=== PATIENT | female | born 1965 | race Caucasian/White ===

== ENCOUNTER 2020-05-12 08:49 | Inpatient (IN) ==
[2020-05-12] MEDS ORDERED: ONDANSETRON INJ 2 MG/ML 2 ML VIAL IV STA (09:07)
[2020-05-12] MEDS ORDERED: SODIUM CHLORIDE 0.9% 1000ML 1,000 ML IV ONE (09:07)
[2020-05-12] MEDS ORDERED: MoRPHine SULFATE 4 MG/ML 1 ML CARP\\VIAL IV STA (09:07)
[2020-05-12] MEDS ORDERED: KETOROLAC TROMETHAMINE 15 MG/ML VIAL IV STA (09:07)
--- NOTE | 2020-05-12 09:29 | Emergency Department Note ---
History of Present Illness General Chief complaint: Kidney Stone Stated complaint: LEFT SIDED KIDNEY STONE Time Seen by Provider: 05/12/20 08:58 History of Present Illness Maximum Pain Intensity: 10 54-year-old female who presents to the emergency department for evaluation of severe left flank/lower back pain since 5 AM this morning. The patient reports that the pain awakened her. The patient notes that she did have blood in her urine this morning. She reports feeling nauseated. She denies any pain radiating into the abdomen. The patient does report a history of kidney stones, and reports that this feels the same. Her believes that her last kidney stone was approximately 3 years ago; the patient thinks that it has been longer. Her last kidney stone required a stent that was placed by Dr. Baird, urologist previously with [facility]. The patient currently rates her discomfort a 10 out of 10. She reports that the pain is a slow waxing and waning pain. The patient has not had any vomiting, fever or chills. She denies any preceding urinary symptoms. Home Medications Home Medications Medication Instructions Recorded Confirmed Type cyclobenzaprine 10 mg PO HS PRN 05/12/20 05/12/20 History latanoprost 1 drp OPB HS 05/12/20 05/12/20 History levothyroxine 25 mcg PO DAILYBB 05/12/20 05/12/20 History lisinopril-hydrochlorothiazide 1 tab PO QAM 05/12/20 05/12/20 History multivitamin 1 tab PO QAM 05/12/20 05/12/20 History timolol maleate 1 drp OPB BID 05/12/20 05/12/20 History Allergies Allergy/AdvReac Type Severity Reaction Status Date / Time No Known Allergies Allergy Unknown Verified 05/12/20 10:51 Past Med/Surg History Medical History (Updated 05/12/20 @ 15:44 by Clifford Melissa MD) Glaucoma primary open angle closure Hypertension Hypothyroidism Kidney cysts Kidney stone on R requiring stent placement by Dr. Baird uric acid Obesity Obesity MANUEL on CPAP Pre-diabetes Surgical History H/O section History of cystoscopy Family History Aunt Breast cancer Brother Diabetes Social History Smoking Status: Never smoker Hx Alcohol Use: No Hx Substance Use: No Preferred Language: Yi Communication Ability: Effective Live Out Nanny Required: No Beliefs That Will Affect Care: None marital status: Current Living Situation: Spouse current occupational status: employed current occupation: RN Other Information That Helps Us Care for You: No Feels Safe at Home: Yes Safety Concerns: Feels Safe At This Time Review of Systems 10 system review was performed and was negative except for pertinent positives and negatives as indicated in history of present illness Physical Exam Vital Signs Vital Signs - 24 hr 05/12/20 08:54 05/12/20 10:00 05/12/20 10:47 Temperature 36.9 C Temperature Source Oral Pulse Rate 64 Pulse Rate [Right Finger] 62 62 Respiratory Rate 16 16 16 Respiratory Effort / Characteristics Non-Labored Spontaneous Non-Labored Spontaneous Respiratory Depth Normal Normal Respiratory Pattern Regular Regular Blood Pressure 163/88 H Blood Pressure [Right Arm] 160/87 H 134/69 Blood Pressure Mean 113 Blood Pressure Mean [Right Arm] 111 90 Blood Pressure Position [Right Arm] Lying Lying Pulse Oximetry 98 98 98 Oxygen Delivery Method Room Air Room Air Room Air Sepsis Recent Fever Within 48 Hours No Sepsis New/Unexplained Change in Mental Status N/A Sepsis Action Taken by Nursing No Action Required 05/12/20 11:49 Temperature Temperature Source Pulse Rate Pulse Rate [Right Finger] 68 Respiratory Rate 20 Respiratory Effort / Characteristics Respiratory Depth Respiratory Pattern Blood Pressure Blood Pressure [Right Arm] 133/62 Blood Pressure Mean Blood Pressure Mean [Right Arm] 85 Blood Pressure Position [Right Arm] Pulse Oximetry 98 Oxygen Delivery Method Room Air Sepsis Recent Fever Within 48 Hours Sepsis New/Unexplained Change in Mental Status Sepsis Action Taken by Nursing CONSTITUTIONAL: Healthy and well nourished. Patient appears in severe discomfort. HEENT: Normocephalic, atraumatic. Pupils equal, round and reactive. NECK: Full active range of motion without discomfort. RESPIRATORY: Clear to auscultation bilaterally with no wheezing, crackles, rhonchi or stridor. CARDIOVASCULAR: Regular rate and rhythm with no murmurs, rubs or gallops. GASTROINTESTINAL: Bowel sounds present in all quadrants. No abdominal tenderness to palpation. Negative CVA tenderness. MUSCULOSKELETAL: No tenderness to palpation through the central lumbar spine or paraspinous muscles. INTEGUMENTARY: No rash or other significant dermatologic conditions noted. HEMATOLOGIC: No ecchymosis or petechiae. PSYCHIATRIC: Positive affect. NEUROLOGIC: No focal neurologic deficits noted. Course Course Patient history and physical exam were performed. Nurse's notes were reviewed. Vital signs were reviewed, showing an elevated blood pressure of 163/88. The patient appears in severe discomfort. IV access was established, and labs were drawn. The patient was administered IV morphine, Toradol and Zofran for pain. Review of labs does not show any significant abnormalities; specifically, creatinine and the white count and urinalysis are normal. Noncontrast CT of the abdomen and pelvis confirms two proximal left ureteral calculi. Findings were discussed with the patient and , as well as Dr. Molina, ED attending physician. The case was then further discussed with [facility]. They have requested that the patient be admitted under the hospitalist service, and Dr. Ramsey will evaluate the patient this afternoon for surgical procedure. The patient was administered IV Rocephin 2 g, and instructed to remain n.p.o. at this time. The patient did require additional doses of morphine with good pain control while in the emergency department. Administered Medications Sodium Chloride (Nss 1000ml) 1,000 mls @ 150 mls/hr IV .Q6H40M EDVIN Stop: 06/11/20 13:48 Last Admin: 05/12/20 15:15 Dose: 150 mls/hr Documented by: [id number] Morphine Sulfate (Morphine Sulfate 4 Mg/Ml 1 Ml Carp\Vial) 4 mg IV Q4H PRN PRN Reason: severe pain Stop: 05/26/20 13:48 Last Admin: 05/12/20 15:58 Dose: 4 mg Documented by: [id number] Discontinued Medications Sodium Chloride (Nss 1000ml) 1,000 mls @ 999 mls/hr IV .Q1H1M ONE Stop: 05/12/20 10:07 Last Infusion: 05/12/20 10:37 Dose: 0 mls/hr Documented by: [id number] Admin: 05/12/20 09:36 Dose: 999 mls/hr Documented by: [id number] Ceftriaxone Sodium (Rocephin) 2,000 mg in 70 mls @ 140 mls/hr IV NOW STA Stop: 05/12/20 12:04 Last Infusion: 05/12/20 12:59 Dose: 0 mls/hr Documented by: [id number] Admin: 05/12/20 11:59 Dose: 140 mls/hr Documented by: [id number] Promethazine HCl 12.5 mg/ (Sodium Chloride) 50.5 mls @ 202 mls/hr IV NOW ONE Stop: 05/12/20 15:29 Last Admin: 05/12/20 15:15 Dose: 202 mls/hr Documented by: [id number] Ketorolac Tromethamine (Ketorolac Tromethamine 15 Mg/Ml Vial) 15 mg IV NOW STA Stop: 05/12/20 09:08 Last Admin: 05/12/20 09:37 Dose: 15 mg Documented by: [id number] Morphine Sulfate (Morphine Sulfate 4 Mg/Ml 1 Ml Carp\Vial) 4 mg IV NOW STA Stop: 05/12/20 09:08 Last Admin: 05/12/20 09:37 Dose: 4 mg Documented by: [id number] Morphine Sulfate (Morphine Sulfate 4 Mg/Ml 1 Ml Carp\Vial) 4 mg IV Q30M PRN PRN Reason: Pain Stop: 05/26/20 09:06 Last Admin: 05/12/20 12:20 Dose: 4 mg Documented by: [id number] Admin: 05/12/20 10:33 Dose: 4 mg Documented by: [id number] Ondansetron HCl (Ondansetron Inj 2 Mg/Ml 2 Ml Vial) 4 mg IV NOW STA Stop: 05/12/20 09:08 Last Admin: 05/12/20 09:37 Dose: 4 mg Documented by: [id number] Ondansetron HCl (Ondansetron Inj 2 Mg/Ml 2 Ml Vial) Confirm Administered Dose 4 mg .ROUTE .STK-MED ONE Stop: 05/12/20 13:25 Last Admin: 05/12/20 13:25 Dose: 4 mg Documented by: [id number] Medical Decision Making Medical Records Attestation: I reviewed the patient's medical records. Home Medications Current Medication List: was personally reviewed by me Laboratory Data Attestation: I reviewed the patient's lab results. Result diagrams: 05/12/20 09:35 05/12/20 09:35 Lab Results 05/12/20 05/12/20 05/12/20 Range/Units 09:00 09:35 09:35 WBC 7.39 (4.8-10.8) K/uL RBC 4.61 (4.2-5.4) M/uL Hgb 14.0 (12.0-16.0) g/dL Hct 42.3 (37-47) % MCV 91.8 (80-100) fL MCH 30.4 (25-34) pg MCHC 33.1 (32-36) g/dL RDW Std Deviation 46.0 (36.4-46.3) fL RDW Coeff of Juan 13.6 (11.5-14.5) % Plt Count 201 (130-400) K/uL MPV 10.4 (7.4-10.4) fL Immature Gran % (Auto) 0.3 % Neut % (Auto) 75.7 % Lymph % (Auto) 14.5 % [place] % (Auto) 7.8 % Eos % (Auto) 1.4 % Baso % (Auto) 0.3 % Neut # (Auto) 5.60 (1.4-6.5) K/uL Lymph # (Auto) 1.07 L (1.2-3.4) K/uL [place] # (Auto) 0.58 (0.11-0.59) K/uL Eos # (Auto) 0.10 (0-0.5) K/uL Baso # (Auto) 0.02 (0-0.2) K/uL Immature Gran # (Auto) 0.02 (0.00-0.02) K/uL Sodium 141 (136-145) mmol/L Potassium 3.8 (3.5-5.1) mmol/L Chloride 109 H (98-107) mmol/L Carbon Dioxide 26 (21-32) mmol/L Anion Gap 6.0 (3-11) BUN 13 (7-18) mg/dl Creatinine 1.13 (0.6-1.2) mg/dl Est Cr Clr Drug Dosing 80.8 ml/min Est GFR ( Amer) 63.4 Est GFR (Non-Af Amer) 54.7 BUN/Creatinine Ratio 11.3 (10-20) Glucose 119 H (70-99) mg/dl Calcium 9.7 (8.5-10.1) mg/dl Total Bilirubin 0.7 (0.2-1) mg/dl AST 15 (15-37) U/L ALT 26 (12-78) U/L Alkaline Phosphatase 80 (45-117) U/L Total Protein 8.0 (6.4-8.2) gm/dl Albumin 3.7 (3.4-5.0) gm/dl Globulin 4.3 H (2.5-4.0) gm/dl Albumin/Globulin Ratio 0.9 (0.9-2) Lipase 106 (73-393) U/L Urine Color Brown Urine Appearance Cloudy A (Clear) Urine pH 5.5 (4.5-7.5) Ur Specific [place] 1.025 (1.000-1.030) Urine Protein 2+ H (Negative) Urine Glucose (UA) Negative (Negative) Urine Ketones Negative (Negative) Urine Blood 3+ H (Negative) Urine Nitrite Negative (Negative) Urine Bilirubin Negative (Negative) Urine Urobilinogen Negative (Negative) Ur Leukocyte Esterase Negative (Negative) Urine RBC >30 H (0-4) /hpf Urine WBC >30 H (0-5) /hpf Ur Epithelial Cells 10-20 H (0-5) /lpf Urine Bacteria Negative (Negative) Urine Mucus Present A (None Prsent) Imaging Data Attestation: I personally reviewed and interpreted this imaging study as follows: My Impression: My interpretation of a noncontrast CT of the abdomen and pelvis shows 2 proximal left ureteral calculi with moderate to severe hydronephrosis. Radiologist's Impression: CT SCAN OF THE ABDOMEN AND PELVIS WITHOUT IV CONTRAST CLINICAL HISTORY: Left flank pain. COMPARISON STUDY: Abdominal CT dated 02/24/2014. TECHNIQUE: CT scan of the abdomen and pelvis is performed from the lung bases to the proximal femora. Images are reviewed in the axial, sagittal, and coronal planes. IV contrast was not administered for this examination. A dose lowering technique was utilized adhering to the principles of ALARA. The examination is degraded by large body habitus, and by streak artifact from the body wall ab utting the CT gantry. CT DOSE: 1723.93 mGy.cm FINDINGS: Lung bases: The heart is normal in size and without pericardial effusion. The coronary arteries are densely calcified. The lung bases are clear noting bibasilar atelectasis. A small hiatal hernia is noted. Liver: The unenhanced liver is enlarged, measuring 22.8 cm in length. The liver demonstrates diffusely diminished attenuation consistent with hepatic steatosis. Fatty sparing is seen adjacent to gallbladder fossa. There is no intrahepatic biliary ductal dilatation. Gallbladder: There are numerous large calcified gallstones with no CT evidence of acute cholecystitis. Spleen: Normal in size and attenuation. Pancreas: The unenhanced pancreas is mildly atrophic and grossly unremarkable. Adrenal glands: Unremarkable. Kidneys: The unenhanced kidneys demonstrate mild cortical atrophy. There is a 1.8 cm linear obstructing calculus identified in the left proximal ureter below the ureteropelvic junction. This is located at the L3-L4 level as seen on image #256. This causes severe left-sided hydronephrosis with associated left-sided perinephric stranding and fluid. An additional 4 mm calculus is present in the left proximal ureter at the level of L4 as seen on image #270. There are additional 1.8 cm and 0.9 cm nonobstructing left renal calculi. No right renal calculi are seen. There is moderate right-sided hydronephrosis. The right ureter is normal in caliber with no obstructing stone/lesion identified. This likely represents a UPJ type obstruction. A 3 cm cyst is noted in the left upper pole. Abdominal vasculature: The abdominal aorta is normal in course and caliber noting moderate atherosclerotic calcification. Bowel: There is mild colonic diverticulosis without CT evidence of acute diverticulitis. No bowel obstruction is seen. The appendix is normal as imaged. Peritoneum: There is no intraperitoneal free air or abdominal ascites. There is laxity of the ventral abdominal wall with a small fat-containing umbilical hernia. Lymphadenopathy: None. Pelvic viscera: The bladder, uterus, and adnexa are normal as visualized. Skeletal structures: The skeletal structures are osteopenic. There is mild lumbosacral spondylosis. Sclerotic change is seen in the sacroiliac joints and pubic symphysis. No lytic or blastic lesions are seen. IMPRESSION: 1. There is a 1.8 cm linear obstructing calculus identified in the left proximal ureter just below the ureteropelvic junction. This causes moderate to severe l eft-sided hydronephrosis. 2. An additional 4 mm calculus is present in the left proximal ureter below the larger obstructing stone. 3. Additional nonobstructing left renal calculi as above. 4. No right renal calculi are identified. 5. There is moderate right-sided hydronephrosis. The right ureter is normal in caliber with no obstructing stone/lesion seen. This likely represents a UPJ type obstruction. 6. Cholelithiasis. 7. Hepatomegaly and hepatic steatosis. 8. There is advanced atherosclerotic calcification of the coronary arteries. 9. Mild colonic diverticulosis without CT evidence of acute diverticulitis. 10. Additional findings as above. Blood Pressure Blood Pressure Findings: Normal blood pressure MDM Narrative CT imaging today shows two proximal ureteral stones that will not likely pass. Fortunately, the patient does not have any evidence for acute kidney injury or infection. She is afebrile and has no leukocytosis. Patient did have decent pain control while in the emergency department. I do not suspect other possible etiologies such as pancreatitis, cholecystitis, hepatitis, diverticulitis, bowel obstruction or appendicitis. I also do not suspect cardiopulmonary referred pain. Impression & Plan Calculus of proximal left ureter Discharge Plan Visit Data Chief Complaint: Kidney Stone Stated Complaint: LEFT SIDED KIDNEY STONE ED Provider: Efraín Molina ED Midlevel Provider: Mraty Lauren Discharge Problem: Calculus of proximal left ureter Patient Disposition: Admitted As Inpatient Discharge Instructions Interventions: ED Discharge Assessment Last Done: 05/12/20 13:14
[2020-05-12 09:48] LABS: Basophils # (auto) 0.02 K/uL (0-0.2); Basophils % (auto) 0.3 %; Eosinophils % (auto) 1.4 %; Hematocrit (blood only) 42.3 % (37-47); Immature Granulocytes # (auto) 0.02 K/uL (0.00-0.02); Immature Granulocytes % (auto) 0.3 %; Lymphocytes # (auto) 1.07 K/uL (1.2-3.4); Lymphocytes % (auto) 14.5 %; Mean Corpuscular Hemoglobin 30.4 pg (25-34); Mean Corpuscular Hgb Conc 33.1 g/dL (32-36); Mean Corpuscular Volume 91.8 fL (80-100); Mean Platelet Volume 10.4 fL (7.4-10.4); Monocytes # (auto) 0.58 K/uL (0.11-0.59); Monocytes % (auto) 7.8 %; Neutrophils % (auto) 75.7 %; Platelet Count 201 K/uL (130-400); RDW Coefficient of Variation 13.6 % (11.5-14.5); Red Blood Count 4.61 M/uL (4.2-5.4); White Blood Count 7.39 K/uL (4.8-10.8)
[2020-05-12 10:08] LABS: Appearance Urine Cloudy (Clear); Bilirubin Urine Negative (Negative); Blood Urine 3+ (Negative); Color Urine Brown; Glucose Urine UA Negative (Negative); Ketones Urine Negative (Negative); Leukocyte Esterase Urine Negative (Negative); Nitrite Urine Negative (Negative); Protein Urine 2+ (Negative); Specific Gravity Urine 1.025 (1.000-1.030); Urobilinogen Urine Negative (Negative); pH Urine 5.5 (4.5-7.5)
[2020-05-12 10:18] LABS: Mucus Urine Present (None Prsent); RBC Urine >30 /hpf (0-4); WBC Urine >30 /hpf (0-5)
--- NOTE | 2020-05-12 10:18 | CT Scan Report ---
CT SCAN OF THE ABDOMEN AND PELVIS WITHOUT IV CONTRAST CLINICAL HISTORY: Left flank pain. COMPARISON STUDY: Abdominal CT dated 02/24/2014. TECHNIQUE: CT scan of the abdomen and pelvis is performed from the lung bases to the proximal femora. Images are reviewed in the axial, sagittal, and coronal planes. IV contrast was not administered for this examination. A dose lowering technique was utilized adhering to the principles of ALARA. The ex amination is degraded by large body habitus, and by streak artifact from the body wall abutting the C T gantry. CT DOSE: 1723.93 mGy.cm FINDINGS: Lung bases: The heart is normal in size and without pericardial effusion. The coronary arteries are d ensely calcified. The lung bases are clear noting bibasilar atelectasis. A small hiatal hernia is not ed. Liver: The unenhanced liver is enlarged, measuring 22.8 cm in length. The liver demonstrates diffusel y diminished attenuation consistent with hepatic steatosis. Fatty sparing is seen adjacent to gallbla dder fossa. There is no intrahepatic biliary ductal dilatation. Gallbladder: There are numerous large calcified gallstones with no CT evidence of acute cholecystitis . Spleen: Normal in size and attenuation. Pancreas: The unenhanced pancreas is mildly atrophic and grossly unremarkable. Adrenal glands: Unremarkable. Kidneys: The unenhanced kidneys demonstrate mild cortical atrophy. There is a 1.8 cm linear obstructi ng calculus identified in the left proximal ureter below the ureteropelvic junction. This is located at the L3-L4 level as seen on image #256. This causes severe left-sided hydronephrosis with associate d left-sided perinephric stranding and fluid. An additional 4 mm calculus is present in the left prox imal ureter at the level of L4 as seen on image #270. There are additional 1.8 cm and 0.9 cm nonobstr ucting left renal calculi. No right renal calculi are seen. There is moderate right-sided hydronephro sis. The right ureter is normal in caliber with no obstructing stone/lesion identified. This likely r epresents a UPJ type obstruction. A 3 cm cyst is noted in the left upper pole. Abdominal vasculature: The abdominal aorta is normal in course and caliber noting moderate atheroscle rotic calcification. Bowel: There is mild colonic diverticulosis without CT evidence of acute diverticulitis. No bowel obs truction is seen. The appendix is normal as imaged. Peritoneum: There is no intraperitoneal free air or abdominal ascites. There is laxity of the ventral abdominal wall with a small fat-containing umbilical hernia. Lymphadenopathy: None. Pelvic viscera: The bladder, uterus, and adnexa are normal as visualized. Skeletal structures: The skeletal structures are osteopenic. There is mild lumbosacral spondylosis. S clerotic change is seen in the sacroiliac joints and pubic symphysis. No lytic or blastic lesions are seen. IMPRESSION: 1. There is a 1.8 cm linear obstructing calculus identified in the left proximal ureter just below th e ureteropelvic junction. This causes moderate to severe left-sided hydronephrosis. 2. An additional 4 mm calculus is present in the left proximal ureter below the larger obstructing st one. 3. Additional nonobstructing left renal calculi as above. 4. No right renal calculi are identified. 5. There is moderate right-sided hydronephrosis. The right ureter is normal in caliber with no obstru cting stone/lesion seen. This likely represents a UPJ type obstruction. 6. Cholelithiasis. 7. Hepatomegaly and hepatic steatosis. 8. There is advanced atherosclerotic calcification of the coronary arteries. 9. Mild colonic diverticulosis without CT evidence of acute diverticulitis. 10. Additional findings as above. ACT 112: Negative or not required by law. Electronically signed by: Efraín Samuels M.D. 05/12/2020 10:17 AM
[2020-05-12 10:19] LABS: Bacteria Urine Negative (Negative)
[2020-05-12 10:20] LABS: Albumin Level 3.7 gm/dl (3.4-5.0); BUN Creatinine Ratio 11.3 (10-20); Calcium 9.7 mg/dl (8.5-10.1); Creatinine Clr Calc Pharmacy 80.8 ml/min; Est GFR (African American) 63.4; Est GFR (Non-African American) 54.7; Potassium 3.8 mmol/L (3.5-5.1)
[2020-05-12 10:23] LABS: Albumin Globulin Ratio 0.9 (0.9-2); Bilirubin,Total 0.7 mg/dl (0.2-1); Globulin 4.3 gm/dl (2.5-4.0)
[2020-05-12] MEDS: MoRPHine SULFATE 4 MG/ML 1 ML CARP\\VIAL IV PRN ×2 (10:33→12:20)
[2020-05-12] MEDS ORDERED: cefTRIAXone SODIUM 2,000 MG/70 ML BAG IV STA (11:35)
--- NOTE | 2020-05-12 12:19 | History & Physical Report ---
Date of Service May 12, 2020 Assessment & Plan (1) Obstruction of left ureteropelvic junction (UPJ) due to stone: This is a 54-year-old female who has significant past medical history of HTN, hypothyroidism, POAG, MANUEL on CPAP, morbid obesity, history of kidney stone, prediabetes who presents to ED secondary to acute onset left leg pain starting at 5 AM. In ED patient was hemodynamically stable. CT abdomen pelvis revealed large 1.8 cm obstructing calculus at the UPJ with moderate to severe left hydronephrosis. Also an additional 4 mm calculus present below the large obstructing stone. Also noted is moderate right-sided hydronephrosis without obstructing stone or lesion. [place] Var[place] secondary to a UPJ type obstruction. She remained afebrile and renal function mildly elevated from baseline of 0.8 to 1.13. Urinalysis not consistent with acute infection. Urine culture sent. In ED she did receive empiric 2 g ceftriaxone along with IV morphine and Toradol. Her symptoms have improved. admit to medical consult urology Dr. Ramsey keep NPO IVF 150cc/hr NS strain all urine IV toradol 15mg IV q6hr prn mod pain/ IV morphine 4mg q4hr severe pain 2g rocephin empirically until infection ruled out, urine culture pending pt does NOT meet SIRS/SEPSIS criteria on admission (2) Acute renal insufficiency: Baseline creatinine 0.8 BUN/creatinine 13 and 1.13 in setting of hydronephrosis due to obstruction 2/2 to nephrolithiasis IVF 150 cc/h, reevaluate renal function (3) Hypertension: Blood pressure controlled 133/62 Hold lisinopril/HCTZ until renal function reevaluate in a.m. due to mild renal insufficiency (4) Glaucoma: Continue timolol and latanoprost (5) Pre-diabetes: Last A1c 5.9 01/05/2020 Encourage lifestyle modifications (6) MANUEL on CPAP: CPAP at bedtime (7) Obesity: Morbid obesity, BMI 46.6 Encourage lifestyle and diet modification (8) DVT prophylaxis: SCD/TEDS for now due probably urologic procedure today assess daily need for chemical prophylaxis Disposition: Admit to medical Follow-up: PCP Dr. Kitchen upon discharge Patient was seen and examined in collaboration with Dr. Feng, please see addendum History of Present Illness Chief Complaint: L Flank pain starting @ 5pm. Primary Care Provider: Kaylee Kitchen DO This is a 54-year-old female who has significant past medical history of HTN, hypothyroidism, POAG, MANUEL on CPAP, morbid obesity, history of kidney stone, prediabetes who presents to ED secondary to acute onset left leg pain starting at 5 AM. Pain awoke patient this morning. Pain located in left flank region without radiation. She further elicits nausea and rosalio hematuria this morning. Pain was 10/10 but currently she is pain free after receiving analgesia. Nothing made better/worse except IV pain medications. She has prior history of right kidney stone in the past requiring stent placement and testing positive for uric acid stone. In past she follows Dr. Baird with [facility] urology, but has not yet established with another provider. She denies any fever, chills, sweats, lightheadedness, dizziness, chest pain, shortness of breath, cough, emesis, dysuria, increased urgency or frequency, melena, hematochezia. She did take her am. medications including lisinopril/hctz and levothyroxine. is at bedside. In ED patient was hemodynamically stable. CT abdomen pelvis revealed large 1.8 cm obstructing calculus at the UPJ with moderate to severe left hydronephrosis. Also an additional 4 mm calculus present below the large obstructing stone. Also noted is moderate right-sided hydronephrosis without obstructing stone or lesion. [place] Varina secondary to a UPJ type obstruction. She remained afebrile and renal function mildly elevated from baseline of 0.8 to 1.13. Urinalysis not consistent with acute infection. Urine culture sent. In ED she did receive empiric 2 g ceftriaxone along with IV morphine and Toradol. Her symptoms have improved. Allergies Allergy/AdvReac Type Severity Reaction Status Date / Time No Known Allergies Allergy Unknown Verified 05/12/20 10:51 Home Medications Home Medications Medication Instructions Recorded Confirmed Type cyclobenzaprine 10 mg PO HS PRN 05/12/20 05/12/20 History latanoprost 1 drp OPB HS 05/12/20 05/12/20 History levothyroxine 25 mcg PO DAILYBB 05/12/20 05/12/20 History lisinopril-hydrochlorothiazide 1 tab PO QAM 05/12/20 05/12/20 History multivitamin 1 tab PO QAM 05/12/20 05/12/20 History timolol maleate 1 drp OPB BID 05/12/20 05/12/20 History Past Med/Surg History Medical History Glaucoma primary open angle closure Hypertension Hypothyroidism Kidney cysts Kidney stone on R requiring stent placement by Dr. 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 Beliefs That Will Affect Care: None marital status: Current Living Situation: Spouse current occupational status: employed current occupation: RN Other Information That Helps Us Care for You: No Feels Safe at Home: Yes Safety Concerns: Feels Safe At This Time Review of Systems Review of Systems: All systems reviewed & are unremarkable except as noted in HPI & below Physical Exam Physical Exam: Constitutional: WD/WN, F, vitals as above, NAD, sitting up in bed, pleasant, conversing easily Head: Normocephalic, Atraumatic Eyes: PERRL, conjunctivae normal, anicteric sclerae ENMT: external ear and nose normal, oropharynx normal Neck: trachea midline, no thyromegaly normal visual inspection Respiratory: normal respiratory effort, lungs clear to auscultation, no wheeze, rales, rhonchi. Normal insp/exp effort, no accessory muscle use Cardiovascular: RRR, no murmur, no edema Vessels: no JVD or carotid bruit Chest: normal inspection of chest Abdomen: obese abd, normal bowel sounds, soft, nontender, no hepatosplenomegaly Musculoskeletal: no cyanosis or clubbing, extremities motor strength 5/5, currently no cva tenderness Skin: no rashes, warm and dry normal turgor Neurologic: PERRL, EOMI, accommodation nl, no face palsy, no dysarthria CN's II-XI intact bilaterally and moves all extremities Psychiatric: A+Ox3, euthymic affect Lymphatic: no cervical or axillary lymphadenopathy : deferred Results & Data Results & Data ([facility]) Vital Signs (Past 12 Hours) Vital Signs Temp Pulse Pulse Resp BP BP Pulse Ox 05/12/20 11:49 68 20 133/62 98 05/12/20 10:47 62 16 134/69 98 05/12/20 10:00 62 16 160/87 H 98 05/12/20 08:54 36.9 C 64 16 163/88 H 98 Laboratory Results Short CBC 05/12/20 Range/Units 09:35 WBC 7.39 (4.8-10.8) K/uL Hgb 14.0 (12.0-16.0) g/dL Hct 42.3 (37-47) % Plt Count 201 (130-400) K/uL BMP 05/12/20 09:35 Sodium 141 Potassium 3.8 Chloride 109 H Carbon Dioxide 26 BUN 13 Creatinine 1.13 Glucose 119 H Calcium 9.7 Liver Function 05/12/20 Range/Units 09:35 Total Bilirubin 0.7 (0.2-1) mg/dl AST 15 (15-37) U/L ALT 26 (12-78) U/L Alkaline Phosphatase 80 (45-117) U/L Albumin 3.7 (3.4-5.0) gm/dl Urine 05/12/20 Range/Units 09:00 Urine Color Brown Urine Appearance Cloudy A (Clear) Urine pH 5.5 (4.5-7.5) Ur Specific [place] 1.025 (1.000-1.030) Urine Protein 2+ H (Negative) Urine Glucose (UA) Negative (Negative) Diagnostic Findings CT Abd/Pelvis: IMPRESSION: 1. There is a 1.8 cm linear obstructing calculus identified in the left proximal ureter just below the ureteropelvic junction. This causes moderate to severe left-sided hydronephrosis. 2. An additional 4 mm calculus is present in the left proximal ureter below the larger obstructing stone. 3. Additional nonobstructing left renal calculi as above. 4. No right renal calculi are identified. 5. There is moderate right-sided hydronephrosis. The right ureter is normal in caliber with no obstructing stone/lesion seen. This likely represents a UPJ type obstruction. 6. Cholelithiasis. 7. Hepatomegaly and hepatic steatosis. 8. There is advanced atherosclerotic calcification of the coronary arteries. 9. Mild colonic diverticulosis without CT evidence of acute diverticulitis. 10. Additional findings as above. Medications Administered Morphine Sulfate (Morphine Sulfate 4 Mg/Ml 1 Ml Carp\Vial) 4 mg IV Q30M PRN PRN Reason: Pain Stop: 05/26/20 09:06 Last Admin: 05/12/20 12:20 Dose: 4 mg Documented by: [id number] Admin: 05/12/20 10:33 Dose: 4 mg Documented by: [id number] Discontinued Medications Sodium Chloride (Nss 1000ml) 1,000 mls @ 999 mls/hr IV .Q1H1M ONE Stop: 05/12/20 10:07 Last Infusion: 05/12/20 10:37 Dose: 0 mls/hr Documented by: [id number] Admin: 05/12/20 09:36 Dose: 999 mls/hr Documented by: [id number] Ceftriaxone Sodium (Rocephin) 2,000 mg in 70 mls @ 140 mls/hr IV NOW STA Stop: 05/12/20 12:04 Last Admin: 05/12/20 11:59 Dose: 140 mls/hr Documented by: [id number] Ketorolac Tromethamine (Ketorolac Tromethamine 15 Mg/Ml Vial) 15 mg IV NOW STA Stop: 05/12/20 09:08 Last Admin: 05/12/20 09:37 Dose: 15 mg Documented by: [id number] Morphine Sulfate (Morphine Sulfate 4 Mg/Ml 1 Ml Carp\Vial) 4 mg IV NOW STA Stop: 05/12/20 09:08 Last Admin: 05/12/20 09:37 Dose: 4 mg Documented by: [id number] Ondansetron HCl (Ondansetron Inj 2 Mg/Ml 2 Ml Vial) 4 mg IV NOW STA Stop: 05/12/20 09:08 Last Admin: 05/12/20 09:37 Dose: 4 mg Documented by: [id number] Code Status & VTE Plan Code Status Full Code VTE Prophylaxis Plan VTE Prophylaxis will be ordered: Yes Supervising Physician Co-Signing Physician Notes I saw this patient with the physician office administrative assistant, I participated in the history, physical, review of systems, and physical exam. I reviewed the medications with the patient and the physician office administrative assistant and helped reconcile the medications. I helped take a detailed family and social history as well. I formulated the assessment and plan personally with the physician office administrative assistant and went over it with the patient. Physical Exam Gen-AAO x 3, NAD, Afebrile Head-NCAT, EOMI, PERRLA, Anicteric Sclera, No Posterior Pharyngeal Erythema Neck-Supple, No JVD, No Thyromegaly, No Masses, No LAD, No Bruits Lungs-Clear to Auscultation Bilaterally, No Rales, No Rhonchi, No Wheezing, No Crepitus Chest-No S4, +S1, +S2, No S3, No Murmurs, No Rubs, No Gallops, No Ectopy Abdomen-Soft, Bowel Sounds Present, Non Tender, Non Distended, No Hepatomegaly, No Splenomegaly, No Palpable Masses, No Rebound, No Rigidity, No Guarding Musculoskeletal-Full Range of Motion Bilaterally, No CVAT Extremities-No Cyanosis, No Clubbing, No Edema Nuero-Cranial Nerves II-XII grossly intact, Motor WNL, DTRs WNL, Strength WNL, Non Focal Psych-Normal Mood
[2020-05-12] MEDS ORDERED: ONDANSETRON INJ 2 MG/ML 2 ML VIAL ONE ×3 (13:24→16:26)
[2020-05-12] MEDS ORDERED: ALUMINUM/MAGNESIUM SUSP 30 ML UDC PO PRN (13:49)
[2020-05-12] MEDS ORDERED: POLYETHYLENE (MIRALAX) 17 GM PACK PO PRN (13:49)
[2020-05-12] MEDS ORDERED: KETOROLAC TROMETHAMINE 15 MG/ML VIAL IV PRN (13:49)
[2020-05-12] MEDS ORDERED: MAGNESIUM HYDROXIDE SUSP 30 ML UDC PO PRN (13:49)
[2020-05-12] MEDS ORDERED: MoRPHine SULFATE 4 MG/ML 1 ML CARP\\VIAL IV PRN (13:49)
[2020-05-12] MEDS ORDERED: ONDANSETRON INJ 2 MG/ML 2 ML VIAL IV PRN ×2 (13:49→15:22)
[2020-05-12] MEDS ORDERED: CYCLOBENZAPRINE HCL 10 MG TAB PO PRN (14:07)
[2020-05-12] MEDS ORDERED: LIDOCAINE HCL 2% 2 ML VIAL/AMP(20MG/ML) INFIL ONE (14:56)
[2020-05-12] MEDS ORDERED: ePHEDrine sulfate 50 MG/ML SYR ONE (14:56)
[2020-05-12] MEDS ORDERED: PROPOFOL IV EMULSION 10 MG/ML 20 ML VIAL IV ONE (14:56)
[2020-05-12] MEDS ORDERED: MIDAZOLAM HCL 1 MG/ML 2ML VIAL ONE (14:56)
[2020-05-12] MEDS ORDERED: PHENYLEPHRINE 100MCG/ML 5ML SYR ONE (14:56)
[2020-05-12] MEDS ORDERED: fentaNYL citrate 100 MCG/2 ML VIAL ONE (14:56)
[2020-05-12] MEDS: SODIUM CHLORIDE 0.9% 1000ML 1,000 ML IV SCH ×2 (15:03→15:15)
[2020-05-12] MEDS ORDERED: PROMETHAZINE HCL 12.5 MG in SODIUM CHLORIDE 0.9% 50 ML IV ONE (15:15)
[2020-05-12] MEDS ORDERED: MEPERIDINE HCL 25 MG/ML CARP/VIAL IV PRN (15:22)
[2020-05-12] MEDS ORDERED: ePHEDrine sulfate 50 MG/ML AMP IV PRN (15:22)
[2020-05-12] MEDS ORDERED: HYDROmorphone INJ 1 MG/ML SYRINGE IV PRN (15:22)
[2020-05-12] MEDS ORDERED: PHENYLEPHRINE 100MCG/ML 5ML SYR IV PRN (15:22)
[2020-05-12] MEDS ORDERED: LABETALOL HCL IV 5 MG/ML 20ML IV PRN (15:22)
[2020-05-12] MEDS ORDERED: ATROPINE SULFATE 0.1 MG/ML 10ML SYR IV PRN (15:22)
[2020-05-12] MEDS ORDERED: fentaNYL citrate 100 MCG/2 ML VIAL IV PRN (15:22)
--- NOTE | 2020-05-12 16:09 | Urology Consultation ---
Date of Consultation May 12, 2020 Assessment & Plan (1) Calculus of proximal left ureter: (2) Obstruction of left ureteropelvic junction (UPJ) due to stone: (3) Hydronephrosis, right: Plan on placing a left stent and may need alkalinization or may need further intervention with either ureteroscopy or ESWL We will do a right retrograde to assess the right side for possible UPJ obstruction History of Present Illness Reason for Consultation: Ureteral stone Attending Physician: Mukund Feng, DO History of Present Illness 54-year-old female with a previous history of stone disease who had a stent placed in the past by Dr. Baird and possibly a stone dissolved but I do not have the definite information but reportedly she had a uric acid stone in the history. Patient is unsure of this. She had sudden onset of severe pain earlier this morning pain got increasingly severe she came to the hospital and has had a CAT scan that shows a stone in the proximal left UPJ a small stone distal to this and another stone in the kidney on the left side that is larger approximately a centimeter or more. She does have hydronephrosis. She also has hydronephrosis on the contralateral side and possibly a right UPJ. She denies any pain on that side. She did have pyuria on urinalysis this morning although it is unclear if she had a clean-catch. We discussed the options and discussed placing a stent given the stone is at the UPJ will simply follow back into the kidney and also has a second larger stone in the kidney will need to get a KUB and consider either lithotripsy and/or possibly alkalinization of the stone if it has uric acid Incidentally the patient has what appears to be some right hydronephrosis but no stone she may have a partial right UPJ obstruction but is asymptomatic from this and does not have an abnormal creatinine at this time. Will need possibly a renal scan after the stone on the left side is cared for Discussed the options including ureteroscopy and/or trial of passage and possible need for as well or ureteroscopy after this procedure or the possibility that they can be dissolved if she has uric acid stone. Also discussed the right retrograde will not place a stent at this time secondary to absence of pain but she may need further investigation with a renal scan down e road Allergies Allergy/AdvReac Type Severity Reaction Status Date / Time No Known Allergies Allergy Unknown Verified 05/12/20 10:51 Home Medications Home Medications Medication Instructions Recorded Confirmed Type cyclobenzaprine 10 mg PO HS PRN 05/12/20 05/12/20 History latanoprost 1 drp OPB HS 05/12/20 05/12/20 History levothyroxine 25 mcg PO DAILYBB 05/12/20 05/12/20 History lisinopril-hydrochlorothiazide 1 tab PO QAM 05/12/20 05/12/20 History multivitamin 1 tab PO QAM 05/12/20 05/12/20 History timolol maleate 1 drp OPB BID 05/12/20 05/12/20 History Patient History Medical History (Updated 05/12/20 @ 16:06 by Se Ramsey MD) Glaucoma primary open angle closure Hypertension Hypothyroidism Kidney cysts Kidney stone on R requiring stent placement by Dr. Baird uric acid Obesity Obesity MANUEL on CPAP Pre-diabetes Surgical History H/O section History of cystoscopy Family History Aunt Breast cancer Brother Diabetes Social History Smoking Status: Never smoker Hx Alcohol Use: No Hx Substance Use: No Preferred Language: Sami Communication Ability: Effective Resource Specialist Required: No Beliefs That Will Affect Care: None marital status: Current Living Situation: Spouse current occupational status: employed current occupation: RN Other Information That Helps Us Care for You: No Feels Safe at Home: Yes Safety Concerns: Feels Safe At This Time Review of Systems Review of Systems: Please review the admitting history and physicals review of systems for further information unrelated to the above history and physical Physical Exam Constitutional: + morbidly obese Eyes: PERRL, conjunctivae normal, anicteric sclerae Neck: normal visual inspection Respiratory: normal respiratory effort Cardiovascular: Extremities: no calf tenderness Gastrointestinal (Abdomen): Inspection/Auscultation: abdomen normal to inspection Skin: no rashes, warm and dry Neurologic: CN's II-XI intact bilaterally Psychiatric: A+Ox3, euthymic affect Lymphatic: no cervical or axillary lymphadenopathy Results & Data ([facility]) Vital Signs (Past 12 Hours) Vital Signs Temp Pulse Pulse Resp BP BP Pulse Ox 05/12/20 15:24 36.5 C 65 18 138/78 97 05/12/20 13:50 36.6 C 69 16 143/76 H 96 05/12/20 13:00 66 12 141/75 H 97 05/12/20 12:31 60 17 151/70 H 98 05/12/20 12:30 58 L 14 98 05/12/20 12:24 69 18 99 05/12/20 12:20 75 20 153/83 H 98 05/12/20 11:49 68 20 133/62 98 05/12/20 10:47 62 16 134/69 98 05/12/20 10:00 62 16 160/87 H 98 05/12/20 08:54 36.9 C 64 16 163/88 H 98 PG Care Time/CCT Total # of Minutes Spent Total Time Spent with Patient: Total time spent is greater than 50% in coordination of care (as documented) at patient's floor/unit and/or counseling patient: Coding Level of Care Code 74795 Initial Inpt Care Lvl 3 Diagnoses Calculus of proximal left ureter N20.1 Obstruction of left ureteropelvic junction (UPJ) due to stone N20.1 Hydronephrosis, right N13.30
--- NOTE | 2020-05-12 16:29 | Anesthesiology Consultation ---
Date of Service May 12, 2020 Covid 19 negative today. Assessment & Plan (1) Encounter for pre-operative examination: Chart Review Chart Review: Acceptable Risk for Surgery and Patient NOT seen in Pre Admission Testing Consults Requested none History Surgery Operation Date: 05/12/20 08:50 Proposed Procedures p Cystoscopy, Left Retrograde Pyelogram, Left Stent Insertion, Possible Right Retrograde Pyelogram - Se Ramsey MD Height/Weight Height: 5 ft 7 in Weight: 135 kg Allergies Allergy/AdvReac Type Severity Reaction Status Date / Time No Known Allergies Allergy Unknown Verified 05/12/20 10:51 Medications Home Medications Medication Instructions Recorded Confirmed Last Taken cyclobenzaprine 10 mg PO HS PRN 05/12/20 05/12/20 Unknown latanoprost 1 drp OPB HS 05/12/20 05/12/20 05/11/20 levothyroxine 25 mcg PO DAILYBB 05/12/20 05/12/20 05/12/20 lisinopril-hydrochlorothiazide 1 tab PO QAM 05/12/20 05/12/20 05/12/20 multivitamin 1 tab PO QAM 05/12/20 05/12/20 05/11/20 timolol maleate 1 drp OPB BID 05/12/20 05/12/20 05/11/20 Active Medications Generic Name Dose Route Start Last Admin Trade Name Freq PRN Reason Stop Dose Admin Sodium Chloride 1,000 mls @ 150 mls/hr 05/12/20 13:49 05/12/20 16:07 Nss 1000ml IV 06/11/20 13:48 0 mls/hr .Q6H40M EDVIN Infusion Morphine Sulfate 4 mg 05/12/20 13:49 05/12/20 15:58 Morphine Sulfate 4 Mg/Ml 1 Ml Carp\Vial IV 05/26/20 13:48 4 mg Q4H PRN Administration severe pain NPO Date Last Intake of Fluids: 05/12/20 Time Last Intake of Fluids: 05:00 Date Last Intake of Solids: 05/12/20 Time Last Intake of Solids: 05:00 Past Medical History Medical History Glaucoma primary open angle closure Hypertension Hypothyroidism Kidney cysts Kidney stone on R requiring stent placement by Dr. Baird uric acid Obesity Obesity MANUEL on CPAP Pre-diabetes Past Family History Family History Aunt Breast cancer Brother Diabetes Past Surgical History Surgical History H/O section History of cystoscopy Social History Smoking Status: Never smoker Hx Alcohol Use: No Hx Substance Use: No Physical Exam Vital Signs Last Vital Signs Temp 37.1 C 05/12/20 16:24 Pulse 70 05/12/20 16:24 Resp 18 05/12/20 16:24 BP 171/99 H 05/12/20 16:24 Pulse Ox 96 05/12/20 16:24 Testing Laboratory Results 05/12/20 09:35 05/12/20 09:35 Urine Color Brown 05/12/20 09:00 Urine Appearance Cloudy (Clear) A 05/12/20 09:00 Urine pH 5.5 (4.5-7.5) 05/12/20 09:00 Ur Specific [place] 1.025 (1.000-1.030) 05/12/20 09:00 Urine Protein 2+ (Negative) H 05/12/20 09:00 Urine Glucose (UA) Negative (Negative) 05/12/20 09:00 Urine Ketones Negative (Negative) 05/12/20 09:00 Urine Nitrite Negative (Negative) 05/12/20 09:00 Ur Leukocyte Esterase Negative (Negative) 05/12/20 09:00 Urine RBC >30 /hpf (0-4) H 05/12/20 09:00 Urine WBC >30 /hpf (0-5) H 05/12/20 09:00 Ur Epithelial Cells 10-20 /lpf (0-5) H 05/12/20 09:00 Electrocardiogram Date: 05/12/20 Findings: + NSR @ (06)
[2020-05-12] MEDS ORDERED: IOTHALAMATE MEGLUMINE II 17.2% 250 ML VIAL INSTIL ONE (17:17)
--- NOTE | 2020-05-12 17:20 | Post Operative Brief Note ---
PG Immediate Post Op with CF Date of Surgery May 12, 2020 Pre & Post Diagnosis Operation Date: 05/12/20 08:50 Pre-Op Diagnosis: (1) Calculus of proximal left ureter; (2) Obstruction of left ureteropelvic junction (UPJ) due to stone; (3) Hydronephrosis, right Post-Op Diagnosis: (1) Calculus of proximal left ureter; (2) Obstruction of left ureteropelvic junction (UPJ) due to stone; (3) Hydronephrosis, right I identified the patient and participated in the time-out.: Yes Procedure Operation Date: 05/12/20 08:50 Actual Procedures p Cystoscopy, Left Retrograde Pyelogram, Left Stent Insertion, Right Retrograde Pyelogram; Removal of Bladder Stones(Left) - Se Ramsey MD Surgeon Se Ramsey MD Court Advocate none Estimated Blood Loss 1 Findings See Below (pt had multiple small orannge stones pass from the left ureteral orifice c/w uric acid stones ) Specimens Specimen Description: A. Left Ureteral Stones for Chemical Analysis
--- NOTE | 2020-05-12 17:41 | Fluoroscopy Report ---
FL retrograde includes kub HISTORY: 54 years-old Female CYSTO urethrogram with stent placement COMPARISON: CT abdomen and pelvis 05/12/2020 TECHNIQUE: 3 spot fluoroscopic images of the abdomen were obtained utilizing 80.1 seconds fluoroscopy time FINDINGS: Left hydronephrosis redemonstrated. Left-sided urethrogram with stent placement. Left renal calculus redemonstrated. Right-sided urethrogram demonstrates mild dilation of the renal pelvis and collecting system without significant ureteral dilation. IMPRESSION: Fluoroscopic assistance as above. Please see procedural report for further details. ACT 112: Negative or not required by law. The above report was generated using voice recognition software. It may contain grammatical, syntax o r spelling errors. Electronically signed by: Abdulaziz Schulte M.D. 05/12/2020 5:40 PM
--- NOTE | 2020-05-12 17:49 | Communication Note ---
Date of Service: May 12, 2020 Pt underwent Stent placement by urology - uric acid stone Urology recommends uric acid stat, alkalize urine, KUB in A.M., start allopurinol 300mg daily and potassium citrate 30mls TIDM and HS Follow up with urology as outpt in 2 weeks for tele med visit and patient will likely require CT scan as uric acid is not visible on KUB Consult Nephrology Dr. Zayas due to renal uric acid stones
--- NOTE | 2020-05-12 17:50 | Anesthesiology Progress Note ---
Date of Service May 12, 2020 Anesthesia Post Procedure Vital Signs Vital Signs: Temp Pulse Pulse Pulse Resp BP BP 05/12/20 17:40 67 14 124/81 05/12/20 17:31 36.2 C L 88 16 157/83 H 05/12/20 16:24 37.1 C 70 18 05/12/20 15:24 36.5 C 65 18 05/12/20 13:50 36.6 C 69 16 05/12/20 13:00 66 12 141/75 H 05/12/20 12:31 60 17 151/70 H 05/12/20 12:30 58 L 14 05/12/20 12:24 69 18 05/12/20 12:20 75 20 153/83 H 05/12/20 11:49 68 20 05/12/20 10:47 62 16 05/12/20 10:00 62 16 05/12/20 08:54 36.9 C 64 16 163/88 H BP Pulse Ox 05/12/20 17:40 96 05/12/20 17:31 96 05/12/20 16:24 171/99 H 96 05/12/20 15:24 138/78 97 05/12/20 13:50 143/76 H 96 05/12/20 13:00 97 05/12/20 12:31 98 05/12/20 12:30 98 05/12/20 12:24 99 05/12/20 12:20 98 05/12/20 11:49 133/62 98 05/12/20 10:47 134/69 98 05/12/20 10:00 160/87 H 98 05/12/20 08:54 98 Pain Intensity Left Flank: Pain Intensity: 1 Transfer of Care Handoff Completed per policy Notes Mental Status: alert / awake / arousable and participated in evaluation Patient Amnestic to Procedure: Yes Nausea / Vomiting: adequately controlled Pain: adequately controlled Airway Patency, RR, SpO2: stable & adequate BP & HR: stable & adequate Hydration State: stable & adequate Anesthetic Complications: no major complications apparent and Pt Satisfied with anesthetic care
[2020-05-12] MEDS: SODIUM BICARBONATE 8.4% 75 MEQ in SODIUM CHLORIDE 0.45 % 1,000 ML IV SCH (18:44)
[2020-05-12] MEDS: allopurinoL 300 MG TAB PO SCH (18:45)
[2020-05-12] MEDS: TIMOLOL MALEATE 0.25% OP SOLN 5 ML BTL OPB SCH (20:09)
[2020-05-12] MEDS: POTASSIUM CITRATE 10 MEQ TAB PO SCH (20:09)
[2020-05-12] MEDS ORDERED: LATANOPROST 0.005% OP SOLN 2.5 ML BTL OPB SCH (21:00)
--- NOTE | 2020-05-13 01:47 | Operative Report (OR) ---
DATE OF OPERATION: 05/12/2020 PREOPERATIVE DIAGNOSES: Left ureteropelvic junction stone and left renal stone and right hydronephrosis. POSTOPERATIVE DIAGNOSES: Right parapelvic cyst, no evidence of ureteropelvic junction obstruction, left multiple uric acid stones, left hydronephrosis. SURGEON: Se Ramsey MD. PROCEDURE: Left retrograde, left stent placement and right retrograde. ANESTHESIA: General. INDICATIONS: The patient is a 54-year-old female who presented to the Emergency Room with severe left flank pain. She does have a history of stones in the past. Somewhere it was mentioned that she had uric acid stones, although her history was all at [facility]. The patient also appeared to have a right hydronephrosis on CT as well, but the CT was done without contrast. She has had no complaints of pain on the right side, but did discuss doing a right retrograde to document UPJ obstruction. DESCRIPTION OF THE PROCEDURE: The patient was taken to the cysto suite where general anesthesia was administered. She had Venodyne stockings placed prior to this, she was on ceftriaxone. She was placed in dorsal lithotomy position and prepped and draped in the usual sterile fashion. A 22-Estonian cystoscope was passed per urethra and the bladder was examined without any abnormalities or stones. I did begin to do a left retrograde and there was some obstruction in the distal ureter, but once I did inject some contrast, it came back and I pulled out the 5-Estonian open-ended catheter and many small sand-like zavaleta colored pieces came out and then some stones as big as 2-3 mm came out, but mainly small sand-like pieces came out consistent with uric acid stones. We finally do a retrograde after doing this several times and having multiple stones continue to fall out. Eventually there was a retrograde that did show hydronephrosis, passed a wire up into the left kidney and then a 5-Estonian 26 cm stent. Removed the wire and then did left the stent in place and try to document this with fluoroscopy. Then I did a right retrograde, which did show it appeared to be almost a drooping marcia like pattern with a cyst, apparently a parapelvic cyst pushing the renal pelvis up. There did not appear to be any hydronephrosis. Ureter did appear to be drained. There was no UPJ obstruction that I could distinguish. At the end of the procedure, I tried to recover as many pieces to send for documentation and stone analysis to document uric acid stones. The patient was transferred to the Recovery Room in stable condition. I attest to the content of the Intraoperative Record and any orders documented therein. Any exception s are noted below.
--- NOTE | 2020-05-13 03:26 | Operative Report (OR) ---
DATE OF OPERATION: 05/12/2020 PREOPERATIVE DIAGNOSIS: Left proximal ureteral calculus and right hydronephrosis. POSTOPERATIVE DIAGNOSES: Uric acid stones in the ureter and right parapelvic cyst. No hydronephrosis. PROCEDURE PERFORMED: Cystoscopy, right retrograde, and left retrograde, and left stent placement. SURGEON: Se Ramsey MD. ANESTHESIA: General. INDICATIONS: The patient is a 54-year-old female with previous history of stones with stents, who allegedly had uric acid stones, who on CAT scan had a proximal ureteral stone that was measured to be 7-8 mm and a smaller stone below that. She also had stones that appeared to be in the renal pelvis on the left side. DESCRIPTION OF THE PROCEDURE: The patient was taken to the operating room where she was given general anesthesia with Venodyne stockings and she was given preoperative antibiotics. She was placed in dorsal lithotomy position and prepped and draped in the usual sterile fashion. A 21-Brazilian cystoscope was passed per urethra and the bladder was examined. There were no abnormalities noted. First a left retrograde was done. There appeared to be some blockage in the distal left ureter, but once I removed the 5-Brazilian open-ended catheter that I had used and I tried to inject some contrast, a large number of small uric acid stones fell out. I did this several times and every time more uric acid stones came out of the ureter. Eventually, I did do a retrograde. There was some hydronephrosis and a dilated proximal ureter. I passed a dual flex guidewire through the open-ended catheter and then removed that leaving the dual flex guidewire in place and passed up a 5-Brazilian 26 cm double-J stent into the proximal left renal pelvis that was visualized from the contrast that was still in it. I moved up the curl in the bladder and removed some of the small stones that were in the bladder and sent them for analysis and then did a right retrograde, which showed no evidence of UPJ, but somewhat of a drooping marcia picture with a parapelvic cyst pushing up on the right renal pelvis. Again, no hydronephrosis was noted and no UPJ obstruction. At the end of the procedure, the bladder was emptied. The patient was transferred to the recovery room in stable condition. I attest to the content of the Intraoperative Record and any orders documented therein. Any exception s are noted below.
[2020-05-13] MEDS: ACETAMINOPHEN 325 MG TAB PO PRN ×2 (05:49→13:23)
[2020-05-13 06:21] LABS: Basophils # (auto) 0.02 K/uL (0-0.2); Basophils % (auto) 0.3 %; Eosinophils # (auto) 0.13 K/uL (0-0.5); Eosinophils % (auto) 1.9 %; Hemoglobin 12.7 g/dL (12.0-16.0); Immature Granulocytes # (auto) 0.02 K/uL (0.00-0.02); Immature Granulocytes % (auto) 0.3 %; Lymphocytes # (auto) 1.55 K/uL (1.2-3.4); Lymphocytes % (auto) 22.3 %; Mean Corpuscular Hgb Conc 32.6 g/dL (32-36); Mean Corpuscular Volume 92.2 fL (80-100); Mean Platelet Volume 10.5 fL (7.4-10.4); Monocytes # (auto) 0.71 K/uL (0.11-0.59); Monocytes % (auto) 10.2 %; Neutrophils # (auto) 4.52 K/uL (1.4-6.5); Platelet Count 184 K/uL (130-400); RDW Coefficient of Variation 13.8 % (11.5-14.5); RDW Standard Deviation 46.3 fL (36.4-46.3); Red Blood Count 4.23 M/uL (4.2-5.4); White Blood Count 6.95 K/uL (4.8-10.8)
[2020-05-13] MEDS ORDERED: LEVOTHYROXINE SODIUM 25 MCG TABLET PO SCH (06:30)
[2020-05-13 06:51] LABS: BUN Creatinine Ratio 12.2 (10-20); Creatinine Clr Calc Pharmacy 81.5 ml/min; Est GFR (Non-African American) 55.3; Potassium 3.5 mmol/L (3.5-5.1)
[2020-05-13] MEDS: SODIUM BICARBONATE 8.4% 75 MEQ in SODIUM CHLORIDE 0.45 % 1,000 ML IV SCH (07:54)
[2020-05-13] MEDS: TIMOLOL MALEATE 0.25% OP SOLN 5 ML BTL OPB SCH (08:41)
[2020-05-13] MEDS: allopurinoL 300 MG TAB PO SCH (08:41)
[2020-05-13] MEDS: POTASSIUM CITRATE 10 MEQ TAB PO SCH ×3 (08:41→14:54)
[2020-05-13] MEDS ORDERED: cefTRIAXone SODIUM 2,000 MG in DEXTROSE 5% 50 ML IV SCH (09:00)
[2020-05-13] MEDS ORDERED: MULTIVITAMIN TAB PO SCH (09:00)
--- NOTE | 2020-05-13 09:28 | Urology Progress Note ---
Date of Service May 13, 2020 Assessment & Plan (1) Kidney stone: Status post emergent ureteral stent placement yesterday Tolerating the stent well Vital stable Subjectively improved Likely discharge home todayoutpatient follow-up Admission and Anticipated Discharge Date Admission Date: May 12, 2020 Subjective Substantially improved from yesterday Denies any significant stent related pain No hematuria Physical Exam Constitutional: well developed and well nourished Respiratory: no respiratory distress Cardiovascular: Extremities: no pedal edema Gastrointestinal (Abdomen): Inspection/Auscultation: abdomen normal to inspection Results & Data ([facility]) Vital Signs (Past 12 Hours) Vital Signs Temp Pulse Pulse Resp BP Pulse Ox 05/13/20 08:08 36.7 C 64 16 98/64 L 96 05/13/20 03:52 36.6 C 67 16 106/66 96 05/13/20 03:37 65 18 95 05/12/20 22:55 36.6 C 58 L 16 109/58 L 96 05/12/20 21:50 65 20 96 PG Care Time/CCT Total # of Minutes Spent Total Time Spent with Patient: Total time spent is greater than 50% in coordination of care (as documented) at patient's floor/unit and/or counseling patient: Coding Level of Care Code 06394 Subseq Hosp Care Lvl 2 Diagnoses Kidney stone N20.0
--- NOTE | 2020-05-13 11:19 | Nephrology Consultation ---
Date of Consultation May 13, 2020 Assessment & Plan (1) Kidney stone: reported in past as uric acid stones. urine alkalinization not moving pH much so far yet> -increase K citrate to 40 po tid and if for d/c send out on this -cont current IVF while in house -ordered recheck urine pH for 1600 stat Present on Admission?: Yes (2) Acute renal insufficiency: borderline KATYA likely obstructive; creat not improved today but stable; chemistries ok; bp on lower side -daily bmp while in house -stopped toradol and recommend nsaid avoidance at d/c >f/u w/ nephro if for d/c myself or Dr Brewer or LEYDA Lopes w/in 2 wks of d/c at either [facility] or [place] Present on Admission?: Yes (3) Hypertension: -OP bp meds held; cont to hold; actually w/ some lower BP today ? from pain meds -cont IVF -if for D/C >> can d/c w/o routine bp meds and we can resume as OP Present on Admission?: Yes (4) Hydronephrosis, right: -plan urology op follow up >> unclear if she should see [facility] (has followed extensively with them in past) or [facility]: defer to primary service Present on Admission?: Yes (5) Kidney cysts: History of Present Illness Reason for Consultation: uric acid stone care Requesting Physician: Dr Feng Attending Physician: Yaw Ortiz MD History of Present Illness 54 y/o F whom I'm asked to see for care of uric acid stones after she underwent emergent L ureteral stent placement yesterday for tx of L UPJ stone. PMH includes HTN on hctz/ACEI, hypothyroid, MANUEL on CPAP, morbid obesity, impaired fasting glucose as well as past uric acid stones. She presented to ER yesterday to evaluate acute onset left flank and leg pain starting at 5 AM accompanied by N w/o emesis and gross hematuria. CT in ER revealed large 1.8 cm obstructing calculus at the UPJ with moderate to severe left hydronephrosis with additional 4 mm calculus below the large obstructing stone and w/ moderate right-sided hydronephrosis without obstructing stone or lesion. Not febrile or w/ hemodynamic concerns clinically >> creatinine up from 0.8-0.9 (was 0.9 12/2019 in [facility] system) baseline to 1.1 on presentation. Emergent urology procedure as above. Had 2 g ceftriaxone and pain meds including Toradol. Medicine team discussed case with me last evening >> I recommended 1/2 ns w/ 75 mEq/L sodium bicarb overnight as well as starting tid potassium citrate. she is on both and tolerating. Urine pH on presentation 5.5; recheck pending for this am. This am pt feels improved: pain is controlled/resolved, ambulating; tolerating po; voiding w/o issue; no sob or edema. Pt reports hx of 2010 stone event passed spontaneously, then 2013 needed stenting w/ Dr Baird and per report uric acid stone. Also endorses remote hx of gross hematuria and told after [facility] urology eval this was due to renal cysts. Allergies Allergy/AdvReac Type Severity Reaction Status Date / Time No Known Allergies Allergy Unknown Verified 05/12/20 10:51 Home Medications Home Medications Medication Instructions Recorded Confirmed Type cyclobenzaprine 10 mg PO HS PRN 05/12/20 05/12/20 History latanoprost 1 drp OPB HS 05/12/20 05/12/20 History levothyroxine 25 mcg PO DAILYBB 05/12/20 05/12/20 History lisinopril-hydrochlorothiazide 1 tab PO QAM 05/12/20 05/12/20 History multivitamin 1 tab PO QAM 05/12/20 05/12/20 History timolol maleate 1 drp OPB BID 05/12/20 05/12/20 History Patient History Medical History Glaucoma primary open angle closure Hypertension Hypothyroidism Kidney cysts Kidney stone on R requiring stent placement by Dr. 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 Beliefs That Will Affect Care: None marital status: Current Living Situation: Spouse current occupational status: employed current occupation: RN Other Information That Helps Us Care for You: No Feels Safe at Home: Yes Safety Concerns: Feels Safe At This Time Review of Systems Review of Systems: All systems reviewed & are unremarkable except as noted in HPI & below Physical Exam Constitutional: well developed, well nourished, cooperative and comfortable; no acute distress Eyes: EOM intact bilaterally ENMT: Ears: no external ear abnormality Nose: no external nose abnormality Mouth: oral mucous membranes not dry Neck: no nuchal rigidity Respiratory: normal respiratory effort Auscultation: lungs clear to auscultation bilaterally and + diminished lung sounds Cardiovascular: RRR, no murmur, no edema Gastrointestinal (Abdomen): Inspection/Auscultation: normal bowel sounds; abdomen not distended Percussion/Palpation: abdomen soft; abdomen nontender Musculoskeletal: Extremities: strength 5/5 throughout Skin: no rashes, warm and dry Neurologic: landeros, fluent speech, no tremor Psychiatric: A+Ox3, euthymic affect Insight: good insight Judgement: good judgement Genitourinary: no flank pain Results & Data ([facility]) Vital Signs (Past 12 Hours) Vital Signs Temp Pulse Pulse Resp BP Pulse Ox 05/13/20 08:08 36.7 C 64 16 98/64 L 96 05/13/20 03:52 36.6 C 67 16 106/66 96 05/13/20 03:37 65 18 95 Laboratory Results 05/13/20 05:57 05/13/20 05:57 UA 1025; 2+ protein, 3+ blood; no LE, no bacteria; > 30 WBC, >RBC yesterday; pH 5.5 pH 5.5 today urien cx NGTD; no stone path pending Diagnostic Findings doppler > no LLE dvt CT abd/pelvis non con 1. There is a 1.8 cm linear obstructing calculus identified in the left proximal ureter just below the ureteropelvic junction. This causes moderate to severe left-sided hydronephrosis. 2. An additional 4 mm calculus is present in the left proximal ureter below the larger obstructing stone. 3. Additional nonobstructing left renal calculi as above. 4. No right renal calculi are identified. 5. There is moderate right-sided hydronephrosis. The right ureter is normal in caliber with no obstructing stone/lesion seen. This likely represents a UPJ type obstruction. 6. Cholelithiasis. 7. Hepatomegaly and hepatic steatosis. 8. There is advanced atherosclerotic calcification of the coronary arteries. 9. Mild colonic diverticulosis without CT evidence of acute diverticulitis. (1) Hypertension Hypertension type: essential hypertension Qualified Code(s): I10 - Essential (primary) hypertension
[2020-05-13] MEDS ORDERED: PHENAZOPYRIDINE HCL 200 MG TAB PO ONE (12:30)
--- NOTE | 2020-05-13 12:46 | Hospitalist Progress Note ---
Date of Service May 13, 2020 Assessment & Plan (1) Calculus of proximal left ureter: History of uric acid nephrolithiasis. Presented to ED with left flank pain. CT demonstrated 1.8 cm calculus in the proximal left ureter with associated left-sided hydronephrosis and perinephric stranding. Right-sided hydronephrosis also noted without calculi. Urology consulted. Left ureteral stent placed. Nephrology consulted. Alkalinization with K citrate for uric acid stones recommended. UA showed many WBC's (although no nitrites or leukocyte esterase). Treated for possible UTI with ciprofloxacin. (2) Hydronephrosis, right: Per Urology. (3) Hypertension: Continue lisinopril + HCTZ. (4) Coronary artery calcification: Severe calcification of coronary arteries and aorta incidentally noted on CT. No anginal symptoms. Nonsmoker. Risk factor modification and evaluation if symptoms develop recommended. Check fasting lipid profile in clinic if not recently done with aggressive lipid-lowering therapy. (5) Calcification of aorta: As noted above. (6) Fatty liver: Incidental finding on CT. Does not consume alcoholic beverages. LFT's OK. Follow. (7) Cholelithiasis: Incidental finding on CT. Asymptomatic. (8) Diverticulosis: Diverticulosis without diverticulitis incidentally noted on CT. (9) DVT prophylaxis: SCD's ordered. (10) Discharge planning issues: Discharge to home. Family Medicine follow-up with Dr. Kitchen. Urology follow-up with [facility]. [facility] Patient learned that her son who lives with her tested positive for COVID-19. Patient has no symptoms herself and had a negative SARS-CoV-2 PCR yesterday (done as routine preop test). She was given info on home precautions for COVID-19. Admission and Anticipated Discharge Date Admission Date: May 12, 2020 Subjective Recheck for left ureteral calculus. Stent placed by Dr. Ramsey yesterday. Feels much better. Less flank pain. Has some bladder discomfort and hematuria. No fever. Physical Exam Constitutional: no acute distress Respiratory: no respiratory distress Auscultation: lungs clear to auscultation bilaterally Cardiovascular: Rate/Rhythm: regular rate and regular rhythm Vessels: no JVD Extremities: no calf tenderness and no edema Gastrointestinal (Abdomen): normal bowel sounds, soft, nontender, no hepatosplenomegaly no CVAT Skin: no rashes, warm and dry Psychiatric: Orientation: alert and oriented x 3 Results & Data Results & Data ([facility]) Vital Signs (Past 12 Hours) Vital Signs Temp Pulse Pulse Resp BP Pulse Ox 05/13/20 08:08 36.7 C 64 16 98/64 L 96 05/13/20 03:52 36.6 C 67 16 106/66 96 05/13/20 03:37 65 18 95 Laboratory Results 05/13/20 05:57 05/13/20 05:57 (1) Hypertension Hypertension type: essential hypertension Qualified Code(s): I10 - Essential (primary) hypertension
--- NOTE | 2020-05-13 19:50 | Electrocardiogram Report ---
Test Reason : Blood Pressure : / mmHG Vent. Rate : 068 BPM Atrial Rate : 068 BPM P-R Int : 144 ms QRS Dur : 090 ms QT Int : 384 ms P-R-T Axes : 058 029 018 degrees QTc Int : 408 ms Normal sinus rhythm Normal ECG When compared with ECG of 21-MAY-1998 15:08, No significant change was found Confirmed by Joshua Schmid ([id number]) on 05/13/2020 7:49:53 PM Referred By: Kaylee Kitchen Confirmed By:Joshua Schmid
--- NOTE | 2020-05-15 05:37 | Discharge Summary ---
Date of Service Date of Admission: 05/12/20 Date of Discharge: 05/13/20 Admission HPI Per Admitting Provider This is a 54-year-old female who has significant past medical history of HTN, hypothyroidism, POAG, MANUEL on CPAP, morbid obesity, history of kidney stone, prediabetes who presents to ED secondary to acute onset left leg pain starting at 5 AM. Pain awoke patient this morning. Pain located in left flank region without radiation. She further elicits nausea and rosalio hematuria this morning. Pain was 10/10 but currently she is pain free after receiving analgesia. Nothing made better/worse except IV pain medications. She has prior history of right kidney stone in the past requiring stent placement and testing positive for uric acid stone. In past she follows Dr. Baird with [facility] urology, but has not yet established with another provider. She denies any fever, chills, sweats, lightheadedness, dizziness, chest pain, shortness of breath, cough, emesis, dysuria, increased urgency or frequency, melena, hematochezia. She did take her am. medications including lisinopril/hctz and levothyroxine. is at bedside. In ED patient was hemodynamically stable. CT abdomen pelvis revealed large 1.8 cm obstructing calculus at the UPJ with moderate to severe left hydronephrosis. Also an additional 4 mm calculus present below the large obstructing stone. Also noted is moderate right-sided hydronephrosis without obstructing stone or lesion. Napoleon secondary to a UPJ type obstruction. She remained afebrile and renal function mildly elevated from baseline of 0.8 to 1.13. Urinalysis not consistent with acute infection. Urine culture sent. In ED she did receive empiric 2 g ceftriaxone along with IV morphine and Toradol. Her symptoms have improved. Principal Diagnosis left ureteral calculus with hydronephrosis, suspected urate calculus OTHER ACUTE / NEW DIAGNOSES: right hydronephrosis calcification coronary arteries calcification aorta cholelithiasis fatty liver diverticulosis of colon exposure to COVID-19 Discharge Data Allergies Allergy/AdvReac Type Severity Reaction Status Date / Time No Known Allergies Allergy Unknown Verified 05/12/20 10:51 Consultations 05/12/20 11:45 ED Decision to Admit Stat 05/12/20 12:10 Consult Urology Routine 05/12/20 17:57 Consult Nephrology Routine Procedures Performed Operation Date: 05/12/20 08:50 Actual Procedures p Left Stent Insertion; Removal of Bladder Stones(Left) - Se Ramsey MD s Cystoscopy, Left Retrograde Pyelogram, Right Retrograde Pyelogram(Left) - Se Ramsey MD Ordered Studies 05/12/20 FL retrograde includes kub Routine 05/12/20 09:07 CT abd pelvis wo con Stat Hospital Course (1) Calculus of proximal left ureter: History of uric acid nephrolithiasis. Presented to ED with left flank pain. CT demonstrated 1.8 cm calculus in the proximal left ureter with associated left-sided hydronephrosis and perinephric stranding. Right-sided hydronephrosis also noted without calculi. Urology consulted. Left ureteral stent placed. Nephrology consulted. Alkalinization with K citrate for uric acid stones recommended. UA showed many WBC's (although no nitrites or leukocyte esterase). Treated for possible UTI with ciprofloxacin. (2) Hydronephrosis, right: Per Urology. (3) Hypertension: Continue lisinopril + HCTZ. (4) Coronary artery calcification: Severe calcification of coronary arteries and aorta incidentally noted on CT. No anginal symptoms. Nonsmoker. Risk factor modification and evaluation if symptoms develop recommended. Check fasting lipid profile in clinic if not recently done with aggressive lipid-lowering therapy. (5) Calcification of aorta: As noted above. (6) Fatty liver: Incidental finding on CT. Does not consume alcoholic beverages. LFT's OK. Wt 135 kg, BMI 46.6. Prediabetes- follow. Ongoing management of obesity. Follow LFT's. (7) Cholelithiasis: Incidental finding on CT. Asymptomatic. (8) Diverticulosis: Diverticulosis without diverticulitis incidentally noted on CT. (9) Exposure to COVID-19 virus: Patient learned that her son who lives with her tested positive for COVID-19. Patient has no symptoms herself and had a negative SARS-CoV-2 PCR yesterday (done as routine preop test). She was given info on home precautions for COVID-19. (10) DVT prophylaxis: SCD's ordered. (11) Discharge planning issues: Discharged to home. Family Medicine follow-up with Dr. Kitchen. Urology follow-up with [facility] [place]. Nephrology follow-up with [facility]. (12) Nephrolithiasis, uric acid: Total Time Total Time Spent Total Time Spent (In Minutes): 40 Discharge Plan Discharge Items Patient Disposition: Home - Self-Care Reason For Visit: kidney stone Discharge Diagnosis: kidney stone Activity: Resume your previous activity Non-emergency contact: Primary Care Provider, Hospitalist, Construction Equipment Operator and Urologist Call non-emergency contact if: you have any medication questions, your symptoms worsen, your pain is worsening and your temperature is above 101 Follow-up/Referrals: Se Ramsey MD [Physician] - (Please call office for follow-up appointment.) Smiley Zayas MD, PhD [Physician] - (Office will contact you or Dr. Kitchen can make referral.) Kaylee Kitchen DO [Primary Care Provider] - (05/17/2020 12:30 PM Kaylee Kitchen DO) Diet: Heart Healthy Addtl Attending Provider Instructions: MEDICATION CHANGES: potassium citrate 2 pills (20 mEq) 3 times a day for kidney stones ciprofloxacin (Cipro) 500 mg twice a day antibiotic for possible urinary tract infection phenazopyridine (Pyridium) 200 mg 3 times a day as needed for bladder pain acetaminophen (Extra Strength Tylenol) 500 mg pills take 2 pills 3 times a day as needed for pain SUMMARY OF TEST RESULTS: urinalysis showed red blood cells and white blood cells urine culture pending CT scan showed kidney stones in left kidney and ureter. There were signs of increased pressure in the kidneys. Other findings on CT scan not related to kidneys: gallstones fatty liver diverticulosis of colon calcification of coronary arteries and aorta COVID test 05/12 was negative. RECOMMENDATIONS FOR FOLLOW-UP: Please ask Dr. Kitchen to make referral for Nephrology appointment in [address] Zayas or one of her partners. Please ask Dr. Kitchen to check lab tests: basic metabolic profile fasting lipid profile if not recently done Please talk to Dr. Kitchen about hardening of the arteries seen on CT scan. OTHER INSTRUCTIONS: Drink plenty of fluids. You may experience some kidney or bladder discomfort and blood in urine until stent comes out. Nothing to be alarmed about unless things get worse or you have a fever. Do not take medicines like ibuprofen (Advil, Motrin), naproxen (Aleve), meloxicam (Mobic). They can cause high blood pressure, stomach ulcers, worsening kidney function and may increase risk of heart attacks and strokes. Seek medical attention if you have: * temperature above 101 * chest pain or trouble breathing * abdominal pain, nausea, vomiting * diarrhea, dark stools or bloody stools * any unanswered questions or concerns Call 911 if symptoms are severe. Please take good care of yourself. Call if you have any questions or problems. You can reach a [facility] hospitalist on duty at [facility] 24 hours a day by calling [phone]. My cell # is [phone]. RECOMMENDATIONS TO MINIMIZE RISK FOR TRANSMISSION OF COVID-19: Infected patients should stay isolated as much as possible. Patient and other members of household should wear masks as much as possible. Everyone should wash their hands, ideally with alcohol based hand hand tier. Doorknobs and other surfaces should be cleaned with strong disinfectants like Lysol or Chlorox. You can get more information online from [facility] or [facility]. (The information below is referring to the infected person, not you.). Home Isolation COVID-19 Instructions The following information about Home Isolation is from the CDC Website: https://www.cdc.gov/coronavirus/2019-ncov/hcp/pykmvpgf-ivvmlih-ldnpmy.html Stay home except to get medical care People who are mildly ill with COVID-19 are able to isolate at home during their illness. You should restrict activities outside your home, except for getting medical care. Do not go to work, school, or public areas. Avoid using public transportation, ride-sharing, or taxis. Separate yourself from other people and animals in your home People: As much as possible, you should stay in a specific room and away from other people in your home. Also, you should use a separate bathroom, if available. Animals: You should restrict contact with pets and other animals while you are sick with COVID-19, just like you would around other people. Although there have not been reports of pets or other animals becoming sick with COVID-19, it is still recommended that people sick with COVID-19 limit contact with animals until more information is known about the virus. When possible, have another member of your household care for your animals while you are sick. If you are sick with COVID-19, avoid contact with your pet, including petting, snuggling, being kissed or licked, and sharing food. If you must care for your pet or be around animals while you are sick, wash your hands before and after you interact with pets and wear a face mask. Call ahead before visiting your doctor If you have a medical appointment, call the healthcare provider and tell them that you have or may have COVID-19. This will help the healthcare providers office take steps to keep other people from getting infected or exposed. Wear a face mask You should wear a face mask when you are around other people (e.g., sharing a room or vehicle) or pets and before you enter a healthcare providers office. If you are not able to wear a face mask (for example, because it causes trouble breathing), then people who live with you should not stay in the same room with you, or they should wear a face mask if they enter your room. Cover your coughs and sneezes Cover your mouth and nose with a tissue when you cough or sneeze. Throw used tissues in a lined trash can. Immediately wash your hands with soap and water for at least 20 seconds or, if soap and water are not available, clean your hands with an alcohol-based hand hand tier that contains at least 60% alcohol. Clean your hands often Wash your hands often with soap and water for at least 20 seconds, especially after blowing your nose, coughing, or sneezing; going to the bathroom; and before eating or preparing food. If soap and water are not readily available, use an alcohol-based hand hand tier with at least 60% alcohol, covering all surfaces of your hands and rubbing them together until they feel dry. Soap and water are the best option if hands are visibly dirty. Avoid touching your eyes, nose, and mouth with unwashed hands. Avoid sharing personal household items You should not share dishes, drinking glasses, cups, eating utensils, towels, or bedding with other people or pets in your home. After using these items, they should be washed thoroughly with soap and water. Clean all high-touch surfaces everyday High touch surfaces include counters, tabletops, doorknobs, bathroom fixtures, toilets, phones, keyboards, tablets, and bedside tables. Also, clean any surfaces that may have blood, stool, or body fluids on them. Use a household cleaning spray or wipe, according to the label instructions. Labels contain instructions for safe and effective use of the cleaning product including precautions you should take when applying the product, such as wearing gloves and making sure you have good ventilation during use of the product. Monitor your symptoms Seek prompt medical attention if your illness is worsening (e.g., difficulty breathing).Beforeseeking care, call your healthcare provider and tell them that you have, or are being evaluated for, COVID-19. Put on a face mask before you enter the facility. These steps will help the healthcare providers office to keep other people in the office or waiting room from getting infected or exposed. Ask your healthcare provider to call the local or [facility] health department. Persons who are placed under active monitoring or facilitated self- monitoring should follow instructions provided by their local health department or occupational health professionals, as appropriate. When working with your local health department check their available hours. If you have a medical emergency and need to call 911, notify the dispatch personnel that you have, or are being evaluated for COVID-19. If possible, put on a face mask before emergency medical services arrive. Discontinuing home isolation Patients with confirmed COVID-19 should remain under home isolation precautions until the risk of secondary transmission to others is thought to be low. The decision to discontinue home isolation precautions should be made on a [id number] basis, in consultation with healthcare providers and state and local health departments. Pending Studies at Discharge: Yes Studies:: urine culture Stand-Alone Forms: [facility], Smoking Cessation Medications and DC Order Prescriptions: New phenazopyridine [Pyridium] 200 mg tablet 200 mg PO Q8H PRN (Reason: bladder pain) Qty: 21 RF: 0 ciprofloxacin HCl 500 mg tablet 500 mg PO BID Qty: 10 RF: 0 acetaminophen 500 mg tablet 1,000 mg PO Q8H PRN (Reason: fever or pain) Qty: 60 RF: 0 potassium citrate 10 mEq (1,080 mg) tablet extended release 20 meq PO TID 30 Days Qty: 180 RF: 12 Continued multivitamin Tablet 1 tab PO QAM RF: 0 cyclobenzaprine 10 mg tablet 10 mg PO HS PRN (Reason: muscle spasms) RF: 0 latanoprost 0.005 % drops 1 drp OPB HS RF: 0 levothyroxine 25 mcg tablet 25 mcg PO DAILYBB RF: 0 timolol maleate 0.5 % drops 1 drp OPB BID RF: 0 lisinopril-hydrochlorothiazide 10-12.5 mg tablet 1 tab PO QAM Qty: 0 RF: 0 Discharge Orders: Discharge Order (Routine); Ordered 05/13/20 Ordered By: Yaw Ahmadi/Other Patient Handouts: COVID-19 Home Care Admission Data Admit Date/Time: 05/12/20 12:19 Attending Provider: Yaw Ortiz Admit Provider: Mukund Feng Primary Care Provider: Kaylee Kitchen Other Providers: Mukund Feng ; Se Ramsey ; Smiley Zayas Other Interventions: Discharge Summary Assessment (RN) Last Done: 05/13/20 18:29
[2020-05-18 11:26] LABS: Component 2 DNR; Source URETERAL STONE
== END 2020-05-13 18:58 | disposition home or self-care (01) | DRG 694 ==
LOC: ED 08:49 → 3W 12:19 → SUATTDRO 12:19 → 3W 13:14

== ENCOUNTER 2023-12-18 18:45 | Inpatient (IN) ==
[2023-12-18] MEDS: ONDANSETRON INJ 2 MG/ML 2 ML VIAL IV STA (20:31)
[2023-12-18] MEDS: SODIUM CHLORIDE 0.9% 1,000 ML IV ONE (20:33)
[2023-12-18] MEDS: MoRPHine SULFATE 4 MG/ML 1 ML CARP\\VIAL IV STA ×2 (20:34→22:03)
[2023-12-18 20:47] LABS: Basophils # (auto) 0.03 K/uL (0.00-0.20); Basophils % (auto) 0.3 %; Hematocrit (blood only) 46.4 % (37.0-47.0); Hemoglobin 15.3 g/dl (12.0-16.0); Immature Granulocytes # (auto) 0.05 K/uL (0.01-0.20); Immature Granulocytes % (auto) 0.5 %; Lymphocytes # (auto) 0.96 K/uL (1.20-3.40); Lymphocytes % (auto) 9.1 %; Mean Corpuscular Hemoglobin 29.9 pg (25.0-34.0); Mean Corpuscular Volume 90.8 fL (80.0-100.0); Mean Platelet Volume 11.3 fL (9.4-12.4); Monocytes # (auto) 0.62 K/uL (0.11-0.59); Monocytes % (auto) 5.9 %; Neutrophils # (auto) 8.92 K/uL (1.40-6.50); Neutrophils % (auto) 84.2 %; Platelet Count 246 K/uL (130-400); RDW Coefficient of Variation 13.1 % (11.5-14.5); RDW Standard Deviation 43.4 fL (36.4-46.3); Red Blood Count 5.11 M/uL (4.20-5.40); White Blood Count 10.58 K/ul (4.8-10.8)
[2023-12-18 20:52] LABS: Alanine Aminotransferase 38 U/L (7-52); Albumin Globulin Ratio 1.2 (0.9-2); Albumin Level 4.3 gm/dl (3.4-5.0); Alkaline Phosphatase 86 U/L (34-104); Anion Gap 11 (3-11); Aspartate Aminotransferase 28 U/L (13-39); BUN Creatinine Ratio 14.6 (10-20); Bilirubin,Total 1.2 mg/dl (0.2-1.0); Blood Urea Nitrogen 15 mg/dl (6-23); Calcium 9.4 mg/dl (8.6-10.3); Carbon Dioxide 24 mmol/L (21-32); Chloride 103 mmol/L (98-107); Est GFR (African American) 69.4 ml/min; Est GFR (Non-African American) 59.9 ml/min; Globulin 3.5 gm/dl (2.5-4.0); Glucose 152 mg/dl (70-99(Fasting)); Potassium 4.1 mmol/L (3.5-5.1); Sodium 138 mmol/L (136-145); Total Protein 7.8 gm/dl (6.0-8.3)
[2023-12-18] MEDS: OPTIRAY 320 100ml IV ONE (21:31)
--- NOTE | 2023-12-18 22:09 | CT Scan Report ---
Exam(s): CT ABDOMEN + PELVIS With Contrast IV Amt: 92 cc opti 320 EXAM: CT Abdomen and Pelvis With Intravenous Contrast CLINICAL HISTORY: Reason for exam: abd pain, vomiting s/p kelsey yesterday. TECHNIQUE: Axial computed tomography images of the abdomen and pelvis with intravenous contrast. Automated exposure control was utilized for the study. A dose lowering technique was utilized adhering to the principles of ALARA. CONTRAST: Patient received 92 cc opti 320 of IV contrast COMPARISON: No relevant prior studies available. FINDINGS: Lung bases: Unremarkable. No mass. No consolidation. ABDOMEN: Liver: Unremarkable. No mass. Gallbladder and bile ducts: Hepatic steatosis prepared a cholecystectomy. No ductal dilation. Pancreas: Unremarkable. No mass. No ductal dilation. Spleen: Unremarkable. No splenomegaly. Adrenals: Unremarkable. No mass. Kidneys and ureters: Multiple bilateral parapelvic cysts. No hydronephrosis. Stomach and bowel: Ventral abdominal wall hernia containing small bowel contributing to small bowel obstruction. Dilated bowel measures up to 3 cm. Surgical evaluation recommended. Diverticulosis, without acute diverticulitis. PELVIS: Appendix: No findings to suggest acute appendicitis. Bladder: Unremarkable. No mass. Reproductive: Unremarkable as visualized. ABDOMEN and PELVIS: Intraperitoneal space: Unremarkable. No free air. No significant fluid collection. Bones/joints: Degenerative changes of the spine. No acute fracture. No dislocation. Soft tissues: See above. Vasculature: Atherosclerotic changes of the aorta. No abdominal aortic aneurysm. Lymph nodes: Unremarkable. No enlarged lymph nodes. IMPRESSION: Ventral abdominal wall hernia containing small bowel contributing to small bowel obstruction. Dilated bowel measures up to 3 cm. Surgical evaluation recommended. Electronically signed by: Casey Burk MD 12/18/23 22:08 PM
[2023-12-18] MEDS: HYDROmorphone INJ 0.5 MG/0.5 ML SYR IV STA (22:37)
--- NOTE | 2023-12-18 23:23 | History & Physical Report ---
Date of Service December 18, 2023 Assessment & Plan (1) Ventral hernia: Plan: I discussed with the treating clinician in the emergency department the patient will be admitted to the surgical service, proceeding as follows: Analgesics will be provided Antiemetics will be provided. The patient has not had any emesis in over an hour. I therefore feel we can hold on placing NG tube but if she does have any further emesis we will need to consider placing an NG tube Will hydrate her aggressively with intravenous fluids. She has received a 1 L bolus of normal saline since arrival to the emergency department. Will give her an additional 1 L bolus and then run maintenance fluids at 125 cc/h N.p.o. status will be initiated and maintained We will repeat labs in the morning At the present time the patient is noted to be normotensive without tachycardia or fever. She does not have leukocytosis, elevated lactic acid level, or any significant electrolyte abnormalities. She also does not have acute kidney injury. I therefore feel we can treat her in a conservative manner as noted above. The morning of 12/19/2023 we will notify her surgeon, Dr. Ronald Jordan and additional recommendations will be made after his evaluation of the patient Will use SCDs only for DVT prevention, no chemical means until it is ascertain whether or not the patient requires any surgical intervention She will be a level 1 full code Addendum (6:00 AM) Patient was revisited/reevaluated at the bedside multiple times since my initial evaluation in the emergency department. Patient notes that since arrival to the emergency department she has not had any further nausea or vomiting. She notes that she continues to have some slight abdominal pain but she feels it is no worse and she has not required any analgesics since she has been in the emergency department. Will notify Dr. Jordan of patient's admission and continue with the plan as noted above. History of Present Illness Chief Complaint: Abdominal pain Primary Care Provider: Kaylee Kitchen DO This is a 57-year-old female who underwent a recent surgical procedure by Dr. Ronald Jordan of [facility] general surgery. The patient had a laparoscopic cholecystectomy on 12/17/2023. The patient was able to be discharged home the same day as her surgery. The patient says that she was doing well upon discharge from the hospital the day of her surgery. She said that she was able to eat some soft food without any difficulty. The evening of her surgery she again noted she was doing well and initially felt well the following morning until earlier today at approximately 10:00 AM the patient developed some nausea and vomiting which persisted throughout the day. She said that she really did not have much in the way of abdominal pain. She does note that she has not had a bowel movement since her surgery but she has been passing some flatus. She denies any fevers, shakes, or chills. Because of her ongoing nausea and vomiting she presented to the emergency department. Of note, the patient says that she has had prior abdominal surgeries in the form of 3 C-sections. Since arrival to the hospital the patient has had labs and imaging which I independently reviewed. A CT scan of the abdomen and pelvis showed the patient had a ventral abdominal wall hernia containing small bowel loop which was causing a small bowel obstruction. There is no intraperitoneal free air or intraperitoneal free fluid. Labs include a CBC her white blood cell count, hemoglobin, hematocrit, and platelet count were all within normal range. Chemistry profile showed sodium and potassium along with the BUN and creatinine were normal. A lactic acid level was nonelevated at 0.9. The patient did have a slight elevation of her total bilirubin at 1.2. Transaminases and alkaline phosphatase were within normal range. Since arrival to the emergency department the patient has had 2 doses of morphine (4 mg each dose) and 1 dose of Dilaudid (0.5 mg). At the time of my interview the patient was resting comfortably in bed and she was in no distress. Allergies Allergy/AdvReac Type Severity Reaction Status Date / Time No Known Allergies Allergy Unknown Verified 12/17/23 05:50 Home Medications Medication Instructions Recorded Confirmed Type latanoprost 0.005 % eye drops 1 drp OPB HS 05/12/20 12/18/23 History levothyroxine 25 mcg tablet 25 mcg PO QAM 05/12/20 12/18/23 History multivitamin 1 tab PO QAM 05/12/20 12/18/23 History timolol maleate 0.5 % eye drops 1 drp OPB BID 05/12/20 12/18/23 History acetaminophen 500 mg tablet 1,000 mg (2 x 500 mg) PO Q8H PRN 05/13/20 12/18/23 Rx fever or pain #60 tabs lisinopril 20 mg tablet 20 mg PO QPM 12/23/20 12/18/23 History omega-3 fatty acids 1 cap PO Q OTHER DAY 12/14/23 12/18/23 History potassium citrate 10 mEq (1,080 20 meq PO QPM 12/14/23 12/18/23 History mg) tablet,extended release oxycodone-acetaminophen 5 mg-325 1 tab PO Q6H PRN pain #10 tabs 12/17/23 12/18/23 Rx mg tablet (Percocet) omeprazole 20 mg capsule,delayed 20 mg PO DAILYBB 12/18/23 12/18/23 History release promethazine 25 mg tablet 25 mg PO Q6H PRN Nausea And 12/18/23 12/18/23 History Vomiting sulfamethoxazole 800 1 tab PO BID 12/18/23 12/18/23 History mg-trimethoprim 160 mg tablet Past Med/Surg History Medical History Recent urinary tract infection contacted PCP w/ "burning with urination," starting abx 12/14/23; no other sym ptoms Hx of migraines only in her 20's Nephrolithiasis, uric acid hx Diverticulosis hx Fatty liver hx Cholelithiasis Calcification of aorta Coronary artery calcification MANUEL on CPAP Pre-diabetes no current meds Glaucoma primary open angle closure Hypothyroidism Hypertension Kidney cysts Surgical History Hx of colonoscopy Status post delivery x3 History of cystoscopy w/stent placement Family History Aunt Breast cancer Brother Diabetes Social History Smoking Status: Never smoker Second Hand Exposure: No; Do You Dip or Chew Tobacco: No; Tobacco Cessation Education Requested by Patient: No Hx Alcohol Use: No Hx Substance Use: No Preferred Language: Japanese Communication Ability: Effective Spray Pilot Required: No Beliefs That Will Affect Care: None marital status: Current Living Situation: Spouse current occupational status: employed current occupation: RN Other Information That Helps Us Care for You: No Feels Safe at Home: Yes Safety Concerns: Feels Safe At This Time Assistive Devices: CPAP and Glasses Review of Systems Constitutional: no fever and no chills Eyes: + corrective lenses Ear, Nose, Mouth, Throat: no ear pain Respiratory: no cough and no dyspnea Cardiovascular: no chest pain Gastrointestinal: as per Subjective / HPI Genitourinary: no dysuria Musculoskeletal: no back pain Integumentary: no rash Neurologic: no localized weakness Physical Exam Constitutional: WD/WN, vitals as above Eyes: Wears glasses ENMT: Ears: no hearing impairment and no external ear abnormality Mouth: no oropharynx abnormality Neck: trachea midline Respiratory: normal respiratory effort; no respiratory distress and no labored breathing Cardiovascular: Rate/Rhythm: regular rate and regular rhythm Gastrointestinal (Abdomen): Abdomen is rotund. Patient had 5 laparoscopic incisions consistent with her recent surgery. The 5 superior incisions were all clean, dry, intact. The negrito ent also had an umbilical incision which was also clean dry and intact. Upon palpation of her abdomen it was not rigid and did not have any rebound tenderness or guarding. The patient did have some pain with palpation in the periumbilical region. There were no overlying skin changes. There are no open areas or areas of drainage. It was difficult to palpate the hernia noted on CT scan due to the patient's body habitus. Musculoskeletal: No calf tenderness Skin: no rashes Neurologic: moves all extremities Psychiatric: A+Ox3, euthymic affect Results & Data Results & Data Vital Signs (Past 12 Hours) Vital Signs Temp Pulse Resp BP Pulse Ox O2 Del Method 12/18/23 22:52 80 12/18/23 21:00 73 12 137/82 96 Room Air 12/18/23 20:30 82 16 139/82 96 Room Air 12/18/23 20:00 94 H 16 141/101 H 97 Room Air 12/18/23 19:30 80 19 137/83 97 Room Air 12/18/23 19:09 77 12/18/23 19:00 77 21 156/86 H 96 Room Air 12/18/23 18:36 36.7 C 75 18 156/86 H 95 Room Air PG Care Time/CCT Total # of Minutes Spent Total Time Spent with Patient: Total time spent is greater than 50% in coordination of care (as documented) at patient's floor/unit and/or counseling patient: Coding Level of Care Code 24427 INT INP/OBS CARE 3/75MIN Diagnoses Ventral hernia K43.9
[2023-12-18 23:52] LABS: Lipase 19 U/L (11-82)
--- NOTE | 2023-12-19 00:28 | Ultrasound Report ---
Exam(s): US ABDOMEN LIMITED EXAM: US Abdomen Limited, Right Upper Quadrant CLINICAL HISTORY: Reason for exam: ventral hernia. TECHNIQUE: Real-time ultrasound of the right upper quadrant with image documentation. COMPARISON: CT scan, same date. FINDINGS: Images demonstrate a ventral abdominal hernia with incarcerated bowel loops. IMPRESSION: Images demonstrate a ventral abdominal hernia with incarcerated bowel loops. Referred to the concomitant the abdomen pelvis from the same day. Electronically signed by: Casey Burk MD 12/19/23 00:27 AM
[2023-12-19 00:54] LABS: Appearance Urine Clear (Clear); Bacteria Urine Automated None Seen (None Seen); Bilirubin Urine Negative (Negative); Blood Urine Trace (Negative); Cast Urine Automated 0-2 /lpf (0-2); Color Urine Yellow; Epithelial Cell Urine Auto 0-2 /hpf (0-2); Glucose Urine UA Negative (Negative); Ketones Urine 3+ (Negative); Leukocyte Esterase Urine Negative (Negative); Nitrite Urine Negative (Negative); Protein Urine Trace (Negative); Specific Gravity Urine > 1.045 (1.000-1.030); Urobilinogen Urine Negative (Negative); WBC Urine Automated 0-5 /hpf (0-5); pH Urine 6.5 (4.5-7.5)
--- NOTE | 2023-12-19 01:05 | Emergency Department Note ---
Impression & Plan Ventral hernia with bowel obstruction, S/P cholecystectomy ED Provider Note CHIEF COMPLAINT: Abdominal pain HISTORY OF PRESENT ILLNESS: This 57-year-old patient past medical history of obesity, cholecystectomy yesterday, chronic hydronephrosis, diverticulosis, coronary artery disease, prediabetes, hypothyroid, hypertension presents to the emergency department plaints of abdominal pain, vomiting. Patient states she began vomiting this morning and has not been able to get it under control. She has been on contact with the surgeons office, tried Zofran ODT and Phenergan tablets. She denies any blood in the vomit. She denies any significant abdominal pain. She has not had any fevers or blood in the stools. REVIEW OF SYSTEMS: A review of systems was performed with positives and pertinent negatives listed in the history of present illness. 10 systems were reviewed and are otherwise negative. ALLERGIES: see below MEDICATIONS: see below PMH: see below SOCIAL HISTORY: see below DDx: Viral gastroenteritis, small bowel obstruction, postcholecystectomy complication such as bile leak, intra-abdominal hemorrhage, UTI, among others PHYSICAL EXAM: Vital signs reviewed. General: Well-appearing 57-year-old female, in no significant distress. HEENT: No scleral icterus, PERRLA, neck supple. Moist mucous membranes. Cardiovascular: Regular rate and rhythm, no extra sounds. Pulmonary: Clear to auscultation bilaterally, normal work of breathing. Abdomen: Soft, morbidly obese, mild diffuse abdominal tenderness, nondistended, positive bowel sounds. Musculoskeletal: Atraumatic, no peripheral edema. Neurologic: Patient awake alert and oriented x 3, speech is clear Skin: Warm, dry, no rash EMERGENCY DEPARTMENT COURSE/MDM: This patient was evaluated and appeared to be in no significant distress. IV access was obtained and laboratory work was drawn. The patient was hydrated with normal saline solution, medicated with IV Dilaudid and Zofran. CT imaging of the abdomen pelvis was performed and reveals evidence of a ventral hernia containing small bowel, causing SBO. An attempt at reducing the hernia was made however the patient's body habitus limits exam. Palpating the deficit in the abdominal wall is quite difficult. An ultrasound was performed after I attempted reduction and reveals the bowel loops remain in the hernia. Patient had no further vomiting in the ED and was doing well after an additional dose of Dilaudid and Zofran. General surgery was consulted. They agreed to admit the patient for further evaluation and management. Patient was made aware of the plan and agreed. MONITORING: An order for cardiac monitoring was placed and the patient is noted to be in a normal sinus rhythm at 73 beats per minute. RADIOLOGY: CT imaging of the abdomen and pelvis to my interpretation reveals a ventral hernia containing bowel. Abdominal ultrasound limited was performed IMPRESSION: Images demonstrate a ventral abdominal hernia with incarcerated bowel loops. Referred to the concomitant the abdomen pelvis from the same da DISPOSITION: Admission Past Med/Surg History Medical History Recent urinary tract infection contacted PCP w/ "burning with urination," starting abx 12/14/23; no other symptoms Hx of migraines only in her 20's Nephrolithiasis, uric acid hx Diverticulosis hx Fatty liver hx Cholelithiasis Calcification of aorta Coronary artery calcification MANUEL on CPAP Pre-diabetes no current meds Glaucoma primary open angle closure Hypothyroidism Hypertension Kidney cysts Surgical History Hx of colonoscopy Status post delivery x3 History of cystoscopy w/stent placement Family History Aunt Breast cancer Brother Diabetes Social History Smoking Status: Never smoker Second Hand Exposure: No; Do You Dip or Chew Tobacco: No; Tobacco Cessation Education Requested by Patient: No Hx Alcohol Use: No Hx Substance Use: No Preferred Language: Nepalese Communication Ability: Effective Curatorial Specialist Required: No Beliefs That Will Affect Care: None marital status: Current Living Situation: Spouse current occupational status: employed current occupation: RN Other Information That Helps Us Care for You: No Feels Safe at Home: Yes Safety Concerns: Feels Safe At This Time Assistive Devices: CPAP Allergies Allergies Allergy/AdvReac Type Severity Reaction Status Date / Time No Known Allergies Allergy Unknown Verified 12/17/23 05:50 Home Meds Home Medications Medication Instructions Recorded Confirmed latanoprost 0.005 % eye drops 1 drp OPB HS 05/12/20 12/18/23 levothyroxine 25 mcg tablet 25 mcg PO QAM 05/12/20 12/18/23 multivitamin 1 tab PO QAM 05/12/20 12/18/23 timolol maleate 0.5 % eye drops 1 drp OPB BID 05/12/20 12/18/23 lisinopril 20 mg tablet 20 mg PO QPM 12/23/20 12/18/23 omega-3 fatty acids 1 cap PO Q OTHER DAY 12/14/23 12/18/23 potassium citrate 10 mEq (1,080 20 meq PO QPM 12/14/23 12/18/23 mg) tablet,extended release omeprazole 20 mg capsule,delayed 20 mg PO DAILYBB 12/18/23 12/18/23 release promethazine 25 mg tablet 25 mg PO Q6H PRN Nausea And 12/18/23 12/18/23 Vomiting sulfamethoxazole 800 1 tab PO BID 12/18/23 12/18/23 mg-trimethoprim 160 mg tablet Previous Rx's Medication Instructions Recorded acetaminophen 500 mg tablet 1,000 mg (2 x 500 mg) PO Q8H PRN 05/13/20 fever or pain #60 tabs oxycodone-acetaminophen 5 mg-325 1 tab PO Q6H PRN pain #10 tabs 12/17/23 mg tablet (Percocet) oxycodone-acetaminophen 5 mg-325 1 tab PO Q6H PRN pain #10 tabs 12/19/24 mg tablet (Percocet) Results & Data (ED) Vital Signs Vital Signs - 24 hr 12/18/23 18:36 12/18/23 19:00 12/18/23 19:09 Temperature 36.7 C Temperature Source Oral Pulse Rate 75 77 77 Pulse Rate from SpO2 Sensor 79 Pulse Rhythm Regular Pulse Strength Normal Respiratory Rate 18 21 Respiratory Effort / Characteristics Non-Labored Respiratory Depth Normal Respiratory Pattern Regular Blood Pressure 156/86 H 156/86 H Blood Pressure Mean 109 109 Blood Pressure Position Sitting Pulse Oximetry 95 96 Oxygen Delivery Method Room Air Room Air Sepsis Recent Fever Within 48 Hours No Sepsis New/Unexplained Change in Mental Status N/A Sepsis Action Taken by Nursing No Action Required 12/18/23 19:30 12/18/23 20:00 12/18/23 20:30 Temperature Temperature Source Pulse Rate 80 94 H 82 Pulse Rate from SpO2 Sensor 81 Pulse Rhythm Pulse Strength Respiratory Rate 19 16 16 Respiratory Effort / Characteristics Respiratory Depth Respiratory Pattern Blood Pressure 137/83 141/101 H 139/82 Blood Pressure Mean 101 114 101 Blood Pressure Position Pulse Oximetry 97 97 96 Oxygen Delivery Method Room Air Room Air Room Air Sepsis Recent Fever Within 48 Hours Sepsis New/Unexplained Change in Mental Status Sepsis Action Taken by Nursing 12/18/23 21:00 12/18/23 22:52 12/18/23 23:01 Temperature 36.8 C Temperature Source Pulse Rate 73 80 80 Pulse Rate from SpO2 Sensor 73 Pulse Rhythm Pulse Strength Respiratory Rate 12 14 Respiratory Effort / Characteristics Respiratory Depth Respiratory Pattern Blood Pressure 137/82 126/76 Blood Pressure Mean 100 92 Blood Pressure Position Pulse Oximetry 96 95 Oxygen Delivery Method Room Air Sepsis Recent Fever Within 48 Hours Sepsis New/Unexplained Change in Mental Status Sepsis Action Taken by Nursing 12/18/23 23:10 12/18/23 23:18 12/18/23 23:18 Temperature Temperature Source Pulse Rate 77 77 Pulse Rate from SpO2 Sensor 77 Pulse Rhythm Pulse Strength Respiratory Rate 18 14 Respiratory Effort / Characteristics Respiratory Depth Respiratory Pattern Blood Pressure 129/74 Blood Pressure Mean 90 Blood Pressure Position Pulse Oximetry 94 Oxygen Delivery Method Sepsis Recent Fever Within 48 Hours Sepsis New/Unexplained Change in Mental Status Sepsis Action Taken by Nursing 12/18/23 23:20 Temperature Temperature Source Pulse Rate 73 Pulse Rate from SpO2 Sensor 74 Pulse Rhythm Pulse Strength Respiratory Rate 19 Respiratory Effort / Characteristics Respiratory Depth Respiratory Pattern Blood Pressure Blood Pressure Mean Blood Pressure Position Pulse Oximetry 94 Oxygen Delivery Method Sepsis Recent Fever Within 48 Hours Sepsis New/Unexplained Change in Mental Status Sepsis Action Taken by Jail Medications Current Medication List: was personally reviewed by me Laboratory Data Attestation: I reviewed the patient's lab results. 12/20/23 07:52 12/19/23 08:32 Lab Results 12/18/23 12/18/23 Range/Units 18:58 23:00 WBC 10.58 (4.8-10.8) K/ul RBC 5.11 (4.20-5.40) M/uL Hgb 15.3 (12.0-16.0) g/dl Hct 46.4 (37.0-47.0) % MCV 90.8 (80.0-100.0) fL MCH 29.9 (25.0-34.0) pg MCHC 33.0 (32.0-36.0) g/dL RDW Std Deviation 43.4 (36.4-46.3) fL RDW Coeff of Juan 13.1 (11.5-14.5) % Plt Count 246 (130-400) K/uL MPV 11.3 (9.4-12.4) fL Immature Gran % (Auto) 0.5 % Neut % (Auto) 84.2 % Lymph % (Auto) 9.1 % [place] % (Auto) 5.9 % Eos % (Auto) 0.0 % Baso % (Auto) 0.3 % Neut # (Auto) 8.92 H (1.40-6.50) K/uL Lymph # (Auto) 0.96 L (1.20-3.40) K/uL [place] # (Auto) 0.62 H (0.11-0.59) K/uL Eos # (Auto) 0.00 (0.00-0.50) K/uL Baso # (Auto) 0.03 (0.00-0.20) K/uL Immature Gran # (Auto) 0.05 (0.01-0.20) K/uL Sodium 138 (136-145) mmol/L Potassium 4.1 (3.5-5.1) mmol/L Chloride 103 (98-107) mmol/L Carbon Dioxide 24 (21-32) mmol/L Anion Gap 11 (3-11) BUN 15 (6-23) mg/dl Creatinine 1.03 (0.6-1.2) mg/dl Est Cr Clr Drug Dosing Not Reportable Est GFR ( Amer) 69.4 ml/min Est GFR (Non-Af Amer) 59.9 ml/min BUN/Creatinine Ratio 14.6 (10-20) Glucose 152 H (70-99(Fasting)) mg/dl Lactate 0.9 (0.4-2.0) mmol/L Calcium 9.4 (8.6-10.3) mg/dl Total Bilirubin 1.2 H (0.2-1.0) mg/dl AST 28 (13-39) U/L ALT 38 (7-52) U/L Alkaline Phosphatase 86 (34-104) U/L Total Protein 7.8 (6.0-8.3) gm/dl Albumin 4.3 (3.4-5.0) gm/dl Globulin 3.5 (2.5-4.0) gm/dl Albumin/Globulin Ratio 1.2 (0.9-2) Lipase 19 (11-82) U/L Administered Medications Discontinued Medications Bupivacaine HCl/Epinephrine Bitart (Bupivacaine/Epinephrine 0.25% 1:200,000 30 Ml Vial) Confirm Administered Dose 30 ml .ROUTE .STK-MED ONE Stop: 12/19/23 08:30 Last Admin: 12/19/23 09:38 Dose: 30 ml Documented By: TONJA Cefazolin Sodium (Cefazolin 330 Mg/Ml 1 Gm Vial) Confirm Administered Dose 990 mg .ROUTE .STK-MED ONE Stop: 12/19/23 08:31 Last Admin: 12/19/23 09:27 Dose: Not Given Documented By: RUDDY Fentanyl Citrate (Fentanyl Citrate Pf 100 Mcg/2 Ml Vial) 50 mcg IV Q5M PRN PRN Reason: PACU Use Only-Pain Stop: 12/19/23 16:35 Last Admin: 12/19/23 10:36 Dose: 50 mcg Documented By: Admin: 12/19/23 10:30 Dose: 50 mcg Documented By: Admin: 12/19/23 10:24 Dose: 50 mcg Documented By: GINA Hydromorphone HCl (Hydromorphone Inj 0.5 Mg/0.5 Ml Syr) 0.5 mg IV NOW STA Stop: 12/18/23 22:20 Last Admin: 12/18/23 22:37 Dose: 0.5 mg Documented By: TATY Sodium Chloride (Nss) 1,000 mls @ 999 mls/hr IV .Q1H1M ONE Stop: 12/18/23 20:59 Last Infusion: 12/18/23 23:09 Dose: Infused Documented By: Admin: 12/18/23 20:33 Dose: 999 mls/hr Documented By: KATHERIN Sodium Chloride (Nss) 1,000 mls @ 999 mls/hr IV .Q1H1M EDVIN Stop: 12/19/23 00:20 Last Infusion: 12/19/23 01:01 Dose: Infused Documented By: Admin: 12/19/23 00:00 Dose: 999 mls/hr Documented By: KIM Sodium Chloride (Nss) 1,000 mls @ 125 mls/hr IV .Q8H EDVIN Stop: 01/17/24 23:29 Last Infusion: 12/20/23 12:05 Dose: Infused Documented By: Admin: 12/20/23 03:11 Dose: 125 mls/hr Documented By: Infusion: 12/20/23 03:11 Dose: Infused Documented By: Admin: 12/19/23 20:31 Dose: 125 mls/hr Documented By: Infusion: 12/19/23 20:31 Dose: Infused Documented By: Admin: 12/19/23 12:32 Dose: 125 mls/hr Documented By: Infusion: 12/19/23 12:32 Dose: Infused Documented By: Infusion: 12/19/23 11:22 Dose: 125 mls/hr Documented By: Infusion: 12/19/23 08:07 Dose: 0 mls/hr Documented By: Admin: 12/19/23 02:02 Dose: 125 mls/hr Documented By: CAMILO Acetaminophen (Ofirmev) 1,000 mg in 100 mls @ 400 mls/hr IV Q8H PRN PRN Reason: Moderate Pain (Scale 4, 5, 6) Stop: 12/21/23 23:22 Last Infusion: 12/19/23 08:08 Dose: Infused Documented By: Admin: 12/19/23 07:43 Dose: 400 mls/hr Documented By: LUCY Pantoprazole Sodium 40 mg/ (Syringe) 10 mls @ 5 mls/min IV DAILY@1100 EDVIN Stop: 01/18/24 10:59 Last Admin: 12/20/23 12:00 Dose: 5 mls/min Documented By: Admin: 12/19/23 11:22 Dose: 5 mls/min Documented By: LUCY Cefoxitin Sodium 2,000 mg/ (Dextrose) 50 mls @ 100 mls/hr IV NOW STA; Protocol Stop: 12/19/23 08:58 Last Infusion: 12/19/23 12:35 Dose: Infused Documented By: Admin: 12/19/23 08:49 Dose: 100 mls/hr Documented By: J Ioversol (Optiray 320 100ml) 92 ml IV ONCE ONE Stop: 12/18/23 21:31 Last Admin: 12/18/23 21:31 Dose: 92 ml Documented By: GENona Ketorolac Tromethamine (Ketorolac 30 Mg/Ml Vial) 30 mg IV Q6H PRN PRN Reason: Pain & Pre PT Stop: 12/24/23 11:13 Last Admin: 12/19/23 11:31 Dose: 30 mg Documented By: LUCY Latanoprost (Latanoprost 0.005% Op Soln 2.5 Ml Btl) 1 drops OPB HS EDVIN Stop: 01/18/24 20:59 Last Admin: 12/19/23 21:02 Dose: 1 drops Documented By: FLORI Levothyroxine Sodium (Levothyroxine Sodium 25 Mcg Tablet) 25 mcg PO DAILYBB [facility] Stop: 01/18/24 06:29 Last Admin: 12/20/23 05:10 Dose: 25 mcg Documented By: Admin: 12/19/23 05:35 Dose: 25 mcg Documented By: CAMILO Morphine Sulfate (Morphine Sulfate 4 Mg/Ml 1 Ml Carp\\Vial) 4 mg IV NOW STA Stop: 12/18/23 20:00 Last Admin: 12/18/23 20:34 Dose: 4 mg Documented By: KATHERIN Morphine Sulfate (Morphine Sulfate 4 Mg/Ml 1 Ml Carp\\Vial) 4 mg IV NOW STA Stop: 12/18/23 21:23 Last Admin: 12/18/23 22:03 Dose: 4 mg Documented By: KATHERIN Morphine Sulfate (Morphine Sulfate 2 Mg/Ml Carp) 2 mg IV Q6H PRN PRN Reason: Pain Stop: 01/01/24 23:22 Last Admin: 12/19/23 12:30 Dose: 2 mg Documented By: Admin: 12/19/23 05:57 Dose: 2 mg Documented By: CAMILO Ondansetron HCl (Ondansetron Inj 2 Mg/Ml 2 Ml Vial) 4 mg IV NOW STA Stop: 12/18/23 20:00 Last Admin: 12/18/23 20:31 Dose: 4 mg Documented By: KATHERIN Ondansetron HCl (Ondansetron Inj 2 Mg/Ml 2 Ml Vial) 4 mg IV Q6H PRN PRN Reason: Nausea And Vomiting Stop: 01/17/24 23:22 Last Admin: 12/19/23 07:43 Dose: 4 mg Documented By: LUCY Ondansetron HCl (Ondansetron Inj 2 Mg/Ml 2 Ml Vial) 4 mg IV ONCE PRN PRN Reason: PACU Use Only-Nausea/Vomiting Stop: 12/19/23 16:35 Last Admin: 12/19/23 10:20 Dose: 4 mg Documented By: GINA Oxycodone/Acetaminophen (Oxycodone/Acetaminophen 5mg/325mg Tab) 2 tab PO Q4H PRN PRN Reason: SEVERE Pain (7,8,9,10) Stop: 01/02/24 11:13 Last Admin: 12/20/23 05:44 Dose: 2 tab Documented By: Admin: 12/19/23 21:49 Dose: 2 tab Documented By: Admin: 12/19/23 16:07 Dose: 2 tab Documented By: LUCY Timolol Maleate (Timolol Maleate 0.5% Op Soln 5 Ml Btl) 1 drops OP BID DEVIN Stop: 01/18/24 08:59 Last Admin: 12/20/23 08:56 Dose: 1 drops Documented By: JOSE ARMANDO Admin: 12/19/23 20:31 Dose: 1 drops Documented By: Admin: 12/19/23 11:22 Dose: 1 drops Documented By: LUCY Imaging Data Radiologist's Impression: Abdomen/Pelvis CT 12/18/23 19:59 Exam(s): CT ABDOMEN + PELVIS With Contrast IV Amt: 92 cc opti 320 EXAM: CT Abdomen and Pelvis With Intravenous Contrast CLINICAL HISTORY: Reason for exam: abd pain, vomiting s/p kelsey yesterday. TECHNIQUE: Axial computed tomography images of the abdomen and pelvis with intravenous contrast. Automated exposure control was utilized for the study. A dose lowering technique was utilized adhering to the principles of ALARA. CONTRAST: Patient received 92 cc opti 320 of IV contrast COMPARISON: No relevant prior studies available. FINDINGS: Lung bases: Unremarkable. No mass. No consolidation. ABDOMEN: Liver: Unremarkable. No mass. Gallbladder and bile ducts: Hepatic steatosis prepared a cholecystectomy. No ductal dilation. Pancreas: Unremarkable. No mass. No ductal dilation. Spleen: Unremarkable. No splenomegaly. Adrenals: Unremarkable. No mass. Kidneys and ureters: Multiple bilateral parapelvic cysts. No hydronephrosis. Stomach and bowel: Ventral abdominal wall hernia containing small bowel contributing to small bowel obstruction. Dilated bowel measures up to 3 cm. Surgical evaluation recommended. Diverticulosis, without acute diverticulitis. PELVIS: Appendix: No findings to suggest acute appendicitis. Bladder: Unremarkable. No mass. Reproductive: Unremarkable as visualized. ABDOMEN and PELVIS: Intraperitoneal space: Unremarkable. No free air. No significant fluid collection. Bones/joints: Degenerative changes of the spine. No acute fracture. No dislocation. Soft tissues: See above. Vasculature: Atherosclerotic changes of the aorta. No abdominal aortic aneurysm. Lymph nodes: Unremarkable. No enlarged lymph nodes. IMPRESSION: Ventral abdominal wall hernia containing small bowel contributing to small bowel obstruction. Dilated bowel measures up to 3 cm. Surgical evaluation recommended. Electronically signed by: Casey Burk MD 12/18/23 22:08 PM Abdomen Ultrasound 12/18/23 23:01 Exam(s): US ABDOMEN LIMITED EXAM: US Abdomen Limited, Right Upper Quadrant CLINICAL HISTORY: Reason for exam: ventral hernia. TECHNIQUE: Real-time ultrasound of the right upper quadrant with image documentation. COMPARISON: CT scan, same date. FINDINGS: Images demonstrate a ventral abdominal hernia with incarcerated bowel loops. IMPRESSION: Images demonstrate a ventral abdominal hernia with incarcerated bowel loops. Referred to the concomitant the abdomen pelvis from the same day. Electronically signed by: Casey Burk MD 12/19/23 00:27 AM Discharge Plan Visit Data Chief Complaint: Abdominal Pain Stated Complaint: ILLNESS ED Provider: Emily Mendez Discharge Problem: Ventral hernia with bowel obstruction, S/P cholecystectomy Patient Disposition: Admitted As Inpatient Discharge Instructions Interventions: ED Discharge Assessment Last Done: 12/19/23 01:30
[2023-12-19] MEDS: SODIUM CHLORIDE 0.9% 1,000 ML IV SCH ×2 (02:02)
[2023-12-19] MEDS: LEVOTHYROXINE SODIUM 25 MCG TABLET PO SCH (05:35)
[2023-12-19] MEDS: MoRPHine SULFATE 2 MG/ML CARP IV PRN (05:57)
[2023-12-19] MEDS ORDERED: ROCURONIUM BROMIDE 10 MG/ML 5 ML VIAL IV ONE (07:27)
[2023-12-19] MEDS ORDERED: fentaNYL citrate PF 100 MCG/2 ML VIAL ONE ×2 (07:27→09:12)
[2023-12-19] MEDS ORDERED: LIDOCAINE 2% 2 ML VIAL/AMP(20MG/ML) INFIL ONE (07:27)
[2023-12-19] MEDS ORDERED: PROPOFOL IV EMULSION 10 MG/ML 20 ML VIAL IV ONE (07:27)
[2023-12-19] MEDS ORDERED: MIDAZOLAM HCL 1 MG/ML 2ML VIAL ONE (07:27)
[2023-12-19] MEDS ORDERED: SUCCINYLCHOLINE CHLORIDE 20 MG/ML 10 ML VIAL IV ONE (07:27)
[2023-12-19] MEDS ORDERED: ALBUMIN HUMAN 5% 12.5 GM/250 ML VIAL IV ONE (07:38)
[2023-12-19] MEDS: ONDANSETRON INJ 2 MG/ML 2 ML VIAL IV PRN ×2 (07:43→10:20)
[2023-12-19] MEDS: ACETAMINOPHEN 1,000 MG/100 ML VIAL IV PRN (07:43)
--- NOTE | 2023-12-19 07:54 | Surgery Progress Note ---
Date of Service December 19, 2023 Assessment & Plan (1) Incisional hernia: Plan: 57-year-old woman with acute incisional hernia containing a loop of small bowel following a laparoscopic cholecystectomy 2 days ago. I discussed the risk and benefits of emergent incisional hernia repair with her. All questions were answered and she is agreeable to proceed. We will take her to the operating room as soon as possible. Admission and Anticipated Discharge Date Admission Date: December 18, 2023 Subjective Feeling well this morning. Some abdominal pain. No fevers or chills. No further nausea or vomiting. Physical Exam Physical Exam: NAD, A&O x 3 AFVSS RRR Lungs CTA bilaterally Abdomen: Soft, mild TTP at midline incision Results & Data Vital Signs (Past 12 Hours) Vital Signs Temp Pulse Pulse Resp BP BP BP 12/19/23 07:26 36.8 C 74 16 133/74 12/19/23 04:55 36.8 C 67 16 130/73 12/19/23 01:00 70 16 128/72 12/19/23 00:50 36.8 C 75 14 154/73 H 12/18/23 23:20 73 19 12/18/23 23:18 129/74 12/18/23 23:18 77 14 12/18/23 23:10 77 18 12/18/23 23:01 36.8 C 80 14 126/76 12/18/23 22:52 80 12/18/23 21:00 73 12 137/82 12/18/23 20:30 82 16 139/82 12/18/23 20:00 94 H 16 141/101 H Pulse Ox O2 Del Method 12/19/23 07:26 96 Room Air 12/19/23 04:55 94 Room Air 12/19/23 01:00 94 Room Air 12/19/23 00:50 92 Room Air 12/18/23 23:20 94 12/18/23 23:18 12/18/23 23:18 94 12/18/23 23:10 12/18/23 23:01 95 12/18/23 22:52 12/18/23 21:00 96 Room Air 12/18/23 20:30 96 Room Air 12/18/23 20:00 97 Room Air (1) Incisional hernia Obstruction and gangrene presence: with obstruction but without gangrene Qualified Code(s): K43.0 - Incisional hernia with obstruction, without gangrene
[2023-12-19] MEDS ORDERED: PROMETHAZINE HCL 6.25 MG in SODIUM CHLORIDE 0.9% 50 ML IV PRN (08:35)
[2023-12-19] MEDS ORDERED: ATROPINE SULFATE 0.1 MG/ML 10ML SYR IV PRN (08:35)
[2023-12-19] MEDS ORDERED: ePHEDrine sulfate 50 MG/ML AMP IV PRN (08:35)
--- NOTE | 2023-12-19 08:35 | Anesthesiology Consultation ---
Date of Service December 19, 2023 Assessment & Plan Chart Review Chart Review: Acceptable Risk for Surgery and Patient NOT seen in Pre Admission Testing Consults Requested none ASA ASA3 Proposed Anesthesia Anesthesia Type: General (RSI) Risk / Benefits Reviewed With: PT / POA / Parent / Guardian, Accepts Plan and Informed Consent Obtained History Surgery Operation Date: 12/19/23 09:20 Proposed Procedures p Umbilical/Incisional Incarcerated Hernia Repair - Bi Jordan MD Height/Weight Height: 5 ft 6 in Weight: 129.7 kg Allergies Allergy/AdvReac Type Severity Reaction Status Date / Time No Known Allergies Allergy Unknown Verified 12/17/23 05:50 Medications Home Medications Medication Instructions Recorded Confirmed Last Taken latanoprost 0.005 % eye drops 1 drp OPB HS 05/12/20 12/18/23 12/16/23 21:00 levothyroxine 25 mcg tablet 25 mcg PO QAM 05/12/20 12/18/23 12/17/23 04:15 multivitamin 1 tab PO QAM 05/12/20 12/18/23 12/16/23 06:00 timolol maleate 0.5 % eye drops 1 drp OPB BID 05/12/20 12/18/23 12/16/23 22:00 acetaminophen 500 mg tablet 1,000 mg (2 x 500 mg) PO Q8H PRN 05/13/20 12/18/23 2 Days Ago fever or pain #60 tabs ~12/16/23 lisinopril 20 mg tablet 20 mg PO QPM 12/23/20 12/18/23 12/16/23 16:00 omega-3 fatty acids 1 cap PO Q OTHER DAY 12/14/23 12/18/23 12/16/23 05:00 potassium citrate 10 mEq (1,080 20 meq PO QPM 12/14/23 12/18/23 12/16/23 16:00 mg) tablet,extended release oxycodone-acetaminophen 5 mg-325 1 tab PO Q6H PRN pain #10 tabs 12/17/23 12/18/23 2 Days Ago mg tablet (Percocet) ~12/16/23 omeprazole 20 mg capsule,delayed 20 mg PO DAILYBB 12/18/23 12/18/23 2 Days Ago release ~12/16/23 promethazine 25 mg tablet 25 mg PO Q6H PRN Nausea And 12/18/23 12/18/23 12/18/23 Vomiting sulfamethoxazole 800 1 tab PO BID 12/18/23 12/18/23 2 Days Ago mg-trimethoprim 160 mg tablet ~12/16/23 Active Medications Generic Name Dose Route Start Last Admin Trade Name Freq PRN Reason Stop Dose Admin Sodium Chloride 1,000 mls @ 125 mls/hr 12/18/23 23:30 12/19/23 08:07 Nss IV 01/17/24 23:29 0 mls/hr .Q8H EDVIN Infusion Acetaminophen 1,000 mg in 100 mls @ 400 mls/hr 12/18/23 23:23 12/19/23 08:08 Ofirmev IV 12/21/23 23:22 Infused Q8H PRN Infusion Moderate Pain (Scale 4, 5, 6) Levothyroxine Sodium 25 mcg 12/19/23 06:30 12/19/23 05:35 Levothyroxine Sodium 25 Mcg Tablet PO 01/18/24 06:29 25 mcg DAILYBB EDVIN Administration Morphine Sulfate 2 mg 12/18/23 23:23 12/19/23 05:57 Morphine Sulfate 2 Mg/Ml Carp IV 01/01/24 23:22 2 mg Q6H PRN Administration Pain Ondansetron HCl 4 mg 12/18/23 23:23 12/19/23 07:43 Ondansetron Inj 2 Mg/Ml 2 Ml Vial IV 01/17/24 23:22 4 mg Q6H PRN Administration Nausea And Vomiting Past Medical History Medical History Recent urinary tract infection contacted PCP w/ "burning with urination," starting abx 12/14/23; no other symptoms Hx of migraines only in her 20's Nephrolithiasis, uric acid hx Diverticulosis hx Fatty liver hx Cholelithiasis Calcification of aorta Coronary artery calcification MANUEL on CPAP Pre-diabetes no current meds Glaucoma primary open angle closure Hypothyroidism Hypertension Kidney cysts Exercise / Class Metabolic Activity II 4-5 Yardwork/Stairs/Walk up hill Past Family History Family History Aunt Breast cancer Brother Diabetes Past Surgical History Surgical History Hx of colonoscopy Status post delivery x3 History of cystoscopy w/stent placement Past Anesthesia History No Hx of Anesthesia Complications and No Family Hx of Anesthesia Complications History of PONV No Hx of PONV and No Hx of Motion Sickness Social History Smoking Status: Never smoker Do You Dip or Chew Tobacco: No Hx Alcohol Use: No Hx Substance Use: No substance use type: does not use Physical Exam Vital Signs Last Vital Signs Temp 36.8 C 12/19/23 07:26 Pulse 74 12/19/23 07:26 Resp 16 12/19/23 07:26 BP 133/74 12/19/23 07:26 Pulse Ox 96 12/19/23 07:26 O2 Del Method Room Air 12/19/23 07:26 Constitutional + obese ENMT Mouth: no dentition abnormality Thyromental Distance: > or= 3.5 Finger Breadths Mallampati Class: II Neck normal visual inspection Respiratory normal respiratory effort Auscultation: lungs clear to auscultation bilaterally Cardiovascular Rate/Rhythm: regular rate and regular rhythm Psychiatric Orientation: alert Testing Laboratory Results 12/18/23 18:58 12/18/23 18:58 Urine Color Yellow 12/19/23 00:41 Urine Appearance Clear (Clear) 12/19/23 00:41 Urine pH 6.5 (4.5-7.5) 12/19/23 00:41 Ur Specific [place] > 1.045 (1.000-1.030) H 12/19/23 00:41 Urine Protein Trace (Negative) H 12/19/23 00:41 Urine Glucose (UA) Negative (Negative) 12/19/23 00:41 Urine Ketones 3+ (Negative) H 12/19/23 00:41 Urine Nitrite Negative (Negative) 12/19/23 00:41 Ur Leukocyte Esterase Negative (Negative) 12/19/23 00:41 Urine WBC (Auto) 0-5 /hpf (0-5) 12/19/23 00:41 Urine RBC (Auto) 6-10 /hpf (0-2) H 12/19/23 00:41 U Hyaline Cast (Auto) 0-2 /lpf (0-2) 12/19/23 00:41 U Epithel Cells (Auto) 0-2 /hpf (0-2) 12/19/23 00:41 Urine Bacteria (Auto) None Seen (None Seen) 12/19/23 00:41
[2023-12-19] MEDS: cefOXitin 2,000 MG in DEXTROSE 5 % MINI-B 50 ML IV STA (08:49)
[2023-12-19 08:55] LABS: Basophils # (auto) 0.04 K/uL (0.00-0.20); Basophils % (auto) 0.4 %; Eosinophils # (auto) 0.03 K/uL (0.00-0.50); Eosinophils % (auto) 0.3 %; Hematocrit (blood only) 42.4 % (37.0-47.0); Immature Granulocytes # (auto) 0.05 K/uL (0.01-0.20); Immature Granulocytes % (auto) 0.6 %; Lymphocytes # (auto) 1.97 K/uL (1.20-3.40); Lymphocytes % (auto) 22.1 %; Mean Corpuscular Hemoglobin 30.8 pg (25.0-34.0); Mean Corpuscular Volume 93.4 fL (80.0-100.0); Mean Platelet Volume 10.6 fL (9.4-12.4); Monocytes # (auto) 1.04 K/uL (0.11-0.59); Monocytes % (auto) 11.7 %; Neutrophils # (auto) 5.77 K/uL (1.40-6.50); Neutrophils % (auto) 64.9 %; Platelet Count 213 K/uL (130-400); RDW Coefficient of Variation 13.4 % (11.5-14.5); RDW Standard Deviation 46.1 fL (36.4-46.3); Red Blood Count 4.54 M/uL (4.20-5.40)
[2023-12-19 09:13] LABS: Albumin Level 3.6 gm/dl (3.4-5.0); Bilirubin,Total 0.9 mg/dl (0.2-1.0); Calcium 8.8 mg/dl (8.6-10.3)
[2023-12-19 09:19] LABS: Albumin Globulin Ratio 1.2 (0.9-2); BUN Creatinine Ratio 12.6 (10-20); Creatinine Clr Calc Pharmacy 89.1 ml/min; Est GFR (African American) 76.5 ml/min; Globulin 3.1 gm/dl (2.5-4.0); Total Protein 6.7 gm/dl (6.0-8.3)
[2023-12-19] MEDS ORDERED: ONDANSETRON INJ 2 MG/ML 2 ML VIAL ONE (09:27)
[2023-12-19] MEDS ORDERED: DEXAMETHASONE SOD INJ 4 MG/ML VIAL ONE (09:27)
[2023-12-19] MEDS: ceFAZolin 330 MG/ML 1 GM VIAL ONE (09:27)
[2023-12-19] MEDS ORDERED: SUGAMMADEX SODIUM 200 MG/2 ML VIAL IV ONE (09:32)
[2023-12-19] MEDS: BUPIVACAINE/EPINEPHRINE 0.25% 1:200,000 30 ML VIAL ONE (09:38)
--- NOTE | 2023-12-19 09:55 | Post Operative Brief Note ---
Immediate Post Op Note v1 Date of Surgery December 19, 2023 Pre & Post Diagnosis Operation Date: 12/19/23 09:20 Pre-Op Diagnosis: Incisional hernia Post-Op Diagnosis: Incisional hernia I identified the patient and participated in the time-out.: Yes Procedure Operation Date: 12/19/23 09:20 Actual Procedures p Incarcerated Incisional Hernia Repair(Not Applicable) - Bi Jordan MD Surgeon Bi Jordan MD Collateral Analyst STANLEY Jones assisted with tissue retraction, camera op, closure Estimated Blood Loss 5 Findings Consistent with Post-Op Diagnosis
--- NOTE | 2023-12-19 09:59 | Operative Report ---
Post Operative Report Pre & Post Diagnosis Operation Date: 12/19/23 09:20 Pre-Op Diagnosis: Incisional hernia Post-Op Diagnosis: Incisional hernia I identified the patient and participated in the time-out.: Yes Procedure Operation Date: 12/19/23 09:20 Actual Procedures p Incarcerated Incisional Hernia Repair(Not Applicable) - Bi Jordan MD Surgeon Bi Jordan MD Cut Off Tender Glass STANLEY Jones assisted with tissue retraction, camera op, closure Estimated Blood Loss 5 Findings Consistent with Post-Op Diagnosis loop of bowel contained within the incisional hernia. Suture from fascia Noted on the 1 side of the hernia. No ischemia or bowel necrosis noted. Hernia repaired primarily with sutures. Specimens None Drains none Anesthesia Type General Complications none Description of Procedure patient was taken the operating room, placed supine on the operating table. A timeout was performed, perioperative antibiotics were administered, SCD boots were placed these and analgesia was obtained, the area was prepped and draped in the normal sterile fashion. Local anesthetic was injected into and around the area of the hernia. The prior incision was opened and extended transversely. This was done with 15 blade scalpel. Bovie electrocautery was used to open up the incision. In the subcutaneous tissue, I was able to identify a loop of bowel coming through a hernia defect. Retractors were placed. We attained the level of the fascia. The bowel loop was viable without evidence of ischemia or necrosis. It was reduced back into the abdominal cavity. The prior suture used to close the fascia from the primary operation was noted on the lower side of the fascia by the hernia. The fascial edges were cleared, and everything was reduced back into the abdominal cavity. The defect was then closed primarily with interrupted 0 Prolene sutures. Once this was complete, the wound was copiously irrigated and suctioned free. Hemostasis was checked and attended to and was excellent. The subcutaneous tissue was closed with 3-0 Vicryl. The skin was closed with a running 4 Monocryl subcuticular stitch. Benzoin and Steri-Strips were applied. Dressings were applied. And a binder was placed. All instrument, needle, and sponge counts were correct at the end of the case. The patient tolerated the procedure without complication, transferred in stable condition to the PACU. My sociology research assistant was necessary throughout the procedure for tissue retraction, possible camera operation, and closure of the wounds. I understand that section 1842(b)(7)(D) of the Social Security act generally prohibits Medicare physician fee schedule payment for the services of assistants at surgery in teaching hospitals when qualified residents are available to furnish such services. I certify that the services for which payment is claimed were medically necessary and that no qualified resident was available to perform the services. I further understand that these services are subject to pos tpayment review by the Medicare carrier. I attest to the content of the Intraoperative Record and any orders documented therein. Any exceptions are noted below.
[2023-12-19] MEDS: fentaNYL citrate PF 100 MCG/2 ML VIAL IV PRN (10:24)
--- NOTE | 2023-12-19 10:50 | Anesthesiology Progress Note ---
Date of Service December 19, 2023 Anesthesia Post Procedure Vital Signs Vital Signs: Temp Pulse Pulse Pulse Resp BP BP 12/19/23 10:45 37.1 C 77 14 147/82 H 12/19/23 10:35 87 15 154/80 H 12/19/23 10:25 84 13 144/85 H 12/19/23 10:15 86 17 143/82 H 12/19/23 10:05 36.3 C L 97 H 14 147/80 H 12/19/23 08:15 37 C 72 16 150/78 H 12/19/23 08:00 12/19/23 07:26 36.8 C 74 16 12/19/23 04:55 36.8 C 67 16 130/73 12/19/23 01:00 70 16 128/72 12/19/23 00:50 36.8 C 75 14 154/73 H 12/18/23 23:20 73 19 12/18/23 23:18 129/74 12/18/23 23:18 77 14 12/18/23 23:10 77 18 12/18/23 23:01 36.8 C 80 14 126/76 12/18/23 22:52 80 12/18/23 21:00 73 12 137/82 12/18/23 20:30 82 16 139/82 12/18/23 20:00 94 H 16 141/101 H 12/18/23 19:30 80 19 137/83 12/18/23 19:09 77 12/18/23 19:00 77 21 156/86 H 12/18/23 18:36 36.7 C 75 18 156/86 H BP Pulse Ox O2 Del Method O2 Flow Rate 12/19/23 10:45 96 Oxymask 5 12/19/23 10:35 96 Oxymask 5 12/19/23 10:25 96 Oxymask 5 12/19/23 10:15 98 Oxymask 5 12/19/23 10:05 95 Oxymask 5 12/19/23 08:15 94 Room Air 12/19/23 08:00 Room Air 12/19/23 07:26 133/74 96 Room Air 12/19/23 04:55 94 Room Air 12/19/23 01:00 94 Room Air 12/19/23 00:50 92 Room Air 12/18/23 23:20 94 12/18/23 23:18 12/18/23 23:18 94 12/18/23 23:10 12/18/23 23:01 95 12/18/23 22:52 12/18/23 21:00 96 Room Air 12/18/23 20:30 96 Room Air 12/18/23 20:00 97 Room Air 12/18/23 19:30 97 Room Air 12/18/23 19:09 12/18/23 19:00 96 Room Air 12/18/23 18:36 95 Room Air Pain Intensity Abdomen: Pain Intensity: 4 Transfer of Care Handoff Completed per policy Notes Mental Status: alert / awake / arousable Patient Amnestic to Procedure: Yes Nausea / Vomiting: adequately controlled Pain: adequately controlled Airway Patency, RR, SpO2: stable & adequate BP & HR: stable & adequate Hydration State: stable & adequate Anesthetic Complications: no major complications apparent
[2023-12-19] MEDS ORDERED: oxyCODONE/ACETAMINOPHEN 5mg/325mg TAB PO PRN (11:14)
[2023-12-19] MEDS: TIMOLOL MALEATE 0.5% OP SOLN 5 ML BTL OP SCH (11:22)
[2023-12-19] MEDS: PANTOprazole 40 MG in SYRINGE 0 ML IV SCH (11:22)
[2023-12-19] MEDS: KETOROLAC 30 MG/ML VIAL IV PRN (11:31)
--- OUTSIDE RECORDS SUMMARY | 2023-12-19 13:06 | External Medical Summary | Summary of Care ---
Author Name Unknown Organization [facility] [address] [facility] [address] Phone [phone] Care Team Providers Care Chief Wharfinger Name Role Phone Kaylee Kitchen Primary Care Provider Reason for Visit * Reason Onset Date Comments FYI 12/14/2023 Surgery 12/14/2023 Med Request 12/14/2023 Encounter Details Date Type Department Care Team (Late st Contact Info) Description 12/14/2023 Telephone General [facility], [facility] [address] [facility] [place] [id number] Bi Jordan MD [address] [place] [address] FYI; Surgery; Med Request Allergies No known active allergiesdocumented as of this encounter (statuses as of 12/18/2023) Medications Medication Sig Dispensed Refills Start Date End Date Status MULTI-DAY VITAMINS PO TABS daily 0 Active CPAP every night at bedtime. 0 Active Furosemide 20 MG Oral Tablet (Lasix)Indications :Lymphedema Take 1 Tablet by mouth daily as needed (edema). for fluid accumulation or weight gain 30 Tablet 11 03/12/2023 Active Timolol Maleate 0.5 % Ophthalmic Solution (Timoptic)Indicati ons:Primary open angle glaucoma of both eyes, moderate stage Instill 1 Drop into both eyes in the morning and 1 Drop before bedtime. 45 mL 3 03/19/2023 Active Levothyroxine Sodium 25 MCG Oral Tablet (Levoxyl)Indicatio ns:Hypothyroidism, unspecified type (at least 30 min prior to breakfast or other meds) 90 Tablet 3 04/20/2023 Active Fish Oil 500 MG Oral Capsule Take 1 Capsule by mouth every other day. 0 Active Latanoprost 0.005 % Ophthalmic Solution (Xalatan)Indicatio ns:Primary open angle glaucoma of both eyes, moderate stage Instill 1 Drop into both eyes at bedtime. 7.5 mL 3 10/04/2023 Active Potassium Citrate ER 10 MEQ (1080 MG) Oral Tablet Extended Release (Urocit-K)Indicati ons:Uric acid kidney stone TAKE 1 TABLET BY MOUTH IN THE MORNING AND BEFORE BEDTIME 60 Tablet 2 10/16/2023 Active Meclizine HCl 25 MG Oral Tablet (Antivert)Indicati ons:Vertigo Take 1 Tablet by mouth 3 times a day as needed for Dizziness. 30 Tablet 1 11/19/2023 Active Omeprazole 20 MG Oral Capsule Delayed Release (PriLOSEC)Indicati ons:Atypical chest pain Take 1 Capsule by mouth in the morning. 1 hour before the first meal of the day. 30 Capsule 5 12/07/2023 Active Lisinopril 20 MG Oral Tablet (Prinivil)Indicati ons:HTN, goal below 130/80 TAKE 1 TABLET BY MOUTH EVERY DAY IN THE MORNING 90 Tablet 3 12/11/2023 Active documented as of this encounter (statuses as of 12/18/2023) Active Problems Problem Noted Date Diagnosed Date Prediabetes 11/04/2018 Overview: Per Prediabetes protocol #1 Primary open angle glaucoma of both eyes, modera te stage 09/20/2018 Senile nuclear cataract, bilateral 10/26/2017 Uric acid kidney stone 04/02/2014 Primary open angle glaucoma 09/05/2013 Progressive high myopia 09/05/2013 PVD (posterior vitreous detachment), both eyes 0 09/05/2013 Obesity, morbid (more than 1 00 lbs over ideal weight or BMI > 40) 02/13/2013 HTN, goal below 140/90 05/11/2011 MANUEL on CPAP 11/15/2010 Overview: 11/09/11 -- CPAP 9 cwp 09/2010 PSG -- CPAP 9 08/2010 PSG -- AHI 40.1 Care Plus Oxygen Hypothyroid documented as of this encounter (statuses as of 12/18/2023) Resolved Problems Problem Noted Date Diagnosed Date Resolved Date Bronchitis, complicated 07/25/2014 06/0 03/2018 Uric acid kidney stone 02/03/201403/25 Genetic Sleep Disorder [facility] Other*[id number] 10/20/2011 03/29/2016 Iron deficiency anemia 05/11/201102/01 Obesity, morbid (more than 1 00 lbs over ideal weight or BMI > 40) 11/23/2009 02/13/2013 Overview: Per Obesity Taxonomy ICD-10 update of inactive term Encounter for supervision of other normal 05/26/2004 12/02/2010 Overview: ICD-10 update of inactive term Elderly multigravida 05/26/2004 011 PREV C-SECT NOS-ANTEPART 05/26/200403/2011 Palpitations 02/01/2018 OBESITY, UNSPECIFIED 010 Overview: Per Obesity Taxonomy documented as of this encounter (statuses as of 12/18/2023) Immunizations Name Administration Dates Next Due H1N1 2009 Influenza, IM 06/25/2009 PPD 12/03/2002,09/05/2001 Pneumococcal Polysaccharide PPV23 (Pneumovax) 08/05/2007 Seasonal Influenza, PF, 6 M & above, IM , (FluLaval or Fluzone) 05/04/2020,05/05/2019,06/25/2018,05/28 Seasonal Influenza, Quadriva lent, No Preserve, IM 05/15/2016 Seasonal Influenza, Split, I IV3, With Preserve, Inj 05/17/2015,05/22/2014,05/07/2013,12/2011,05/27/2011,06/06/2010,05/05/20 09,05/27/2008,08/05/2007 TD - Tetanus/Diptheria (ADULT) 09/05/2001,199109/05/2011 TDAP (age 10 and older)(Boostrix) 11/03/2019 TDAP (age 11 and older)(Adacel) 04/22/2009 Zoster Vaccine Recombinant (Shingrix) 08/30/2020 ,11/03/2019 documented as of this encounter Social History Tobacco Use Types Packs/Day Years Used Date Smoking Tobacco: Never Passive Smoke Exposure: Past Smokeless Tobacco: Never Alcohol Use Standard Drinks/Week Comments No 0 (1 standard drink = 0.6 oz pur e alcohol) PHQ-2 Answer Date Recorded PHQ Adult Total Score 0 09/11/2022 Hunger Vital Sign Answer Date Recorded Within the past 12 months, y ou worried that your food would run out before you got the money to buy more. Never true 09/11/19 23 Within the past 12 months, t he food you bought just didn't last and you didn't have money to get more. Never true 09/11/2022 Sex and Gender Information Value Date Recorded Sex Assigned at Female 10/23/2022 10:42 AM EST Gender Identity Female 10/23/2022 10:42 AM EST Sexual Orientation Straight 11/03/2019 8: 27 AM EDT Job Start Date Occupation Industry Not on file Not on file Not on file documented as of this encounter Miscellaneous Notes * Telephone Encounter - Danika Ontiveros LPN - 12/18/2023 8:32 AM EDT I also tiger texted you. * Telephone Encounter - Itzel Lux OSA - 12/18/2023 8:23 AM EDT Pt called asking if she could get a script for nausea - she had gallbladder removed yesterday. [facility]. Pt had procedure at [facility]. Please call pt * Telephone Encounter - Dionna Lane OSA - 12/14/2023 12:59 PM EDT Jenniffer calling from [facility] Surgery Team to inform that pt has a UTI and that PCP hassent in antibiotics in for pt. documented in this encounter Plan of Treatment Upcoming Encounters Date Type Department Care Team (Late st Contact Info) Description 01/02/2024 9:30 AM EDT Office Visit General Surgery, [facility] [address] [facility] [place] [id number] Bi Jordan MD [address] [facility] [place] [address] 01/04/2024 3:00 PM EDT Office Visit Nephrology, [facility] [address] [facility] [place] [address] Smiley Zayas MD [address] [place] [address] 03/10/2024 10:50 AM EDT Office Visit [facility] [address] [place] [address] Kaylee Kitchen, [address] [place] [address] 04/02/2024 7:30 AM EDT Imaging Radiology [facility] [address] [facility] [place] [address] 06/06/2024 7:00 AM EDT Office Visit Sleep Disorders Ctr [facility] [address] [facility] [place] [phone] Miriam Yepez CRNP [address] [facility] [place] [address] 06/18/2024 8:30 AM EDT Office Visit [facility] [address] [place] [address] Katie Pepper MD [address] [place], [place] [id number] 06/19/2024 8:20 AM EDT [facility] [address] [facility] [place] [address] Taylor Merino PA-C [address] [place] [address] [place] [address] 12/22/2024 8:00 AM EDT [facility] [address] [place] [address] Ashley Jackson PA-C [address] [place] [address] Scheduled Procedures Name Priority Associated Diagnoses Date/Ti me LAPAROSCOPIC CHOLECYSTECTOMY WITH CHOLANGIOGRAM Symptomatic cholelithiasis COLONOSCOPY FLEXIBLE PROXIMA L DIAGNOSTIC Recall History of colon polyps Health Maintenance Due Date Last Done Comments COVID-19 Vaccine ( season) 2023 Depression Screening 09/11/2023 09/11/2022 Mammogram 04/02/2024 04/02/2023, 0808/2021, 03/21/2021, Additional history exists TSH 04/02/2024 04/02/2023, 08/27, 03/30/2022, Additional history exists Influenza Vaccine (FLU shot) (Season Ended) 2024 05/04/2020, 05/05/2019, 06/25/2018, Additional history exists HbA1c 09/12/2024 09/12/2023, 08/0 02/2023, 09/05/2022, Additional history exists GFR 12/06/2024 12/07/2023, 08/27, 04/02/2023, Additional history exists Albumin/Creatinine Ratio 01/17/2025 01/17/2022, 03/27 COLONOSCOPY-EVERY 5 YRS AGES 18-100 06/28/2025 06/28/2020, 06/28/2020, 06/11/2015, Additional history exists Pap Smear 12/05/2025 12/05/2022, 01/25, 12/21/2016, Additional history exists Cervical Cancer Screening 12/06/2027 HPV/Co-Test 12/06/2027 12/05/2022 Lipid Panel 04/02/2028 04/02/2023, 08/27, 09/07/2021, Additional history exists DTaP,Tdap,and Td Vaccines (3 - Td or Tdap) 11/02/2029 11/03/2019, 04/22/2009, 09/05/2001, Additional history exists Pneumococcal Vaccine: Pediatrics (0 to 5 Years) and At-Risk Patients (6 to 64 Years) Aged Out 08/05/2007 No longer eligible based on patient's age to complete this topic Zoster Vaccines Completed 08/30/2020, 11/03/2019 GARDASIL-HPV IMMUNIZATION SERIES Aged Out No longer eligible based on patient's age to complete this topic Hepatitis B Discontinued MENINGOCOCCAL (MENACTRA/MENVEO) Aged Out No longer eligible based on patient's age to complete this topic documented as of this encounter Medical Devices Implanted Type Area Yield Loss Inspector Device Identifier Shelf Expiration Date Model / Serial / Lot Bard Ureteral Stent 6 X 24cm Implanted:Qty: 1 on 02/24/2014 at OR [facility] Left: Ureter 04/26/2018 [id number] / / [id number] documented as of this encounter Advance Directives Latest Code Status on File Code Status Date Activated Date Inactivated Comments Full Code 02/24/2014 12:29 PM 02/24/2014 5:51 PM This o rder reflects the patients wishes and were consensually agreed upon. Care Teams Chief Wharfinger Relationship Specialty Start Date End Date Kaylee Kitchen DO [address] [place] [address] PCP - General Family Medicine 10/25/12 documented as of this encounter
--- OUTSIDE RECORDS SUMMARY | 2023-12-19 13:06 | External Medical Summary | Summary of Care ---
Author Name Unknown Organization [facility] Address [address] [facility] [address] Phone [phone] Care Team Providers Care Investigations Consultant Name Role Phone Kaylee Kitchen Primary Care Provider Reason for Visit * Reason Onset Date Comments Advice 12/18/2023 Encounter Details Date Type Department Care Team (Late st Contact Info) Description 12/18/2023 Telephone General [facility], [facility] [address] [place] [address] Bi Jordan MD [address] [place] [address] Advice Allergies No known active allergiesdocumented as of [...] THE MORNING 90 Tablet 3 12/11/2023 Active Sulfamethoxazole-T rimethoprim 800-160 MG Oral Tablet (Bactrim DS) Take 1 Tablet by mouth in the morning and 1 Tablet before bedtime. Do all this for 10 days. Until gone.. 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 [facility] Other*[id number] 10/20/2011 03/29/2016 Iron deficiency anemia 05/11/201102/01 Obesity, [...] Next Due H1N1 2009 Influenza, IM 06/25/2009 Pneumococcal Polysaccharide PPV23 (Pneumovax) 08/05/2007 Seasonal Influenza, PF, 6 M & above, IM , (FluLaval or Fluzone) 05/04/2020,05/05/2019,06/25/2018,06/15 Seasonal Influenza, Quadriva lent, No Preserve, IM 05/15/2016 Seasonal Influenza, Split, I IV3, With Preserve, Inj 05/17/2015,05/22/2014,05/07/2013,05/01,05/27/2011,05/05/2009,05/27/2008 ,08/05/2007 TDAP (age 10 and older)(Boostrix) 11/03/2019 TDAP [...] Encounter - Danika Ontiveros LPN - 12/18/2023 8:42 AM EDT [place] texted Dr Bi Jordan and asked if I could send in zofran for patient who just had Gallbladder out yesterday. I also said will it be 4mg tablet, take every 8-12 hours prn, dispense 16 tablets. Called patient and told her I sent in Zofran. documented in this encounter Plan of Treatment Upcoming Encounters Date Type Department Care Team (Late st Contact Info) Description 01/02/2024 9:30 AM EDT Office Visit [facility] [address] [place] [address] Bi Jordan MD [address] [place] [address] 01/04/2024 3:00 PM EDT Office Visit Nephrology, [facility] [address] [place] [address] Smiley Zayas MD [address] [place] [address] 03/10/2024 10:50 AM EDT Office Visit Family Practice, [place] [address] [place] [phone] Kaylee Kitchen DO [address] [place] [address] 04/02/2024 7:30 AM EDT Imaging Radiology [facility] [place] [address] 06/06/2024 7:00 AM EDT Office Visit [facility] Disorders Ctr [facility] 132 [facility] [place] [phone] Miriam Yepez CRNP 132 [facility] [place] [address] 06/18/2024 8:30 AM EDT Office Visit [facility] [address] [place] [address] Katie Pepper MD [address] [place] [address] 06/19/2024 8:20 AM EDT Office Visit Dermatology, [place] [address] [place] [address] Taylor Merino PA-C [address] [place] [address] [place] [address] 12/22/2024 8:00 AM EDT Office Visit Gynecology/Obstetrics [facility] [address] [facility] [place] [address] Ashley Jackson PA-C [address] [place] [address] Scheduled Procedures Name Priority Associated Diagnoses Date/Ti [...] 06/25/2018, Additional history exists HbA1c 09/12/2024 09/12/2023, 02/2023, 09/05/2022, Additional history exists GFR 12/06/2024 [...] this encounter Medical Devices Implanted Type Area Matcher Device Identifier Shelf Expiration Date Model / Serial / Lot Bard Ureteral Stent 6 X 24cm Implanted:Qty: 1 on 02/24/2014 at OR [facility] Left: Ureter 04/26/2018 [id number] / / [id number] documented as of this encounter Advance Directives Latest Code Status on File Code Status Date Activated Date Inactivated Comments Full Code 02/24/2014 12:29 PM 02/24/2014 5:51 PM This o rder reflects the patients wishes and were consensually agreed upon. Care Teams Investigations Consultant Relationship Specialty Start Date End Date Kaylee Kitchen DO [address] [place] [address] PCP - General Family Medicine 10/25/12 documented as of this encounter
--- OUTSIDE RECORDS SUMMARY | 2023-12-19 13:07 | External Medical Summary | Summary of Care ---
Author Name Unknown Organization [facility] Address [address] [facility] [address] Phone [phone] Care Team Providers Care Dairy Feed Mixing Operator Name Role Phone Kaylee Kitchen Primary Care Provider [phone] Reason for Visit * Reason Onset Date Comments FYI 12/14/2023 Surgery 12/14/2023 Med Request 12/14/2023 Encounter Details Date Type Department Care Team (Late st Contact Info) Description 12/14/2023 Telephone General Surgery, [facility] [place] [address] Bi Jordan MD [address] [place] [address] FYI; Surgery; Med Request Allergies No known [...] kidney stone 02/03/201403/25 Genetic Sleep Disorder Resea [facility] Other*[id number] 10/20/2011 03/29/2016 Iron deficiency anemia 05/11/201102/01 Obesity, [...] - she had gallbladder removed yesterday. [facility]. Pt had procedure at [facility]. Please call pt * Telephone Encounter - Dionna Lane OSA - 12/14/2023 12:59 PM EDT Jenniffer calling from [facility] Surgery Team to inform that pt has a UTI and that PCP hassent in antibiotics in for pt. documented in this encounter Plan of Treatment Upcoming Encounters Date Type Department Care Team (Late st Contact Info) Description 01/02/2024 9:30 AM EDT Office Visit General Surgery, [facility] 132 [facility] [place] [address] Bi Jordan MD 132 [facility] [place] [address] 01/04/2024 3:00 PM EDT Office Visit Nephrology, [facility] [address] [facility] [place] [address] Smiley Zayas MD [address] [place] [address] 03/10/2024 10:50 AM EDT Office Visit [facility] [address] [place] [address] Kaylee Kitchen, [address] [place] [address] 04/02/2024 7:30 AM EDT Imaging Radiology [facility] [address] [facility] 132 [facility] [place] [address] 06/06/2024 7:00 AM EDT Office Visit [facility] Disorders Ctr [facility] 132 [facility] [place] [phone] Miriam Yepez CRNP 132 [facility] [place] [address] 06/18/2024 8:30 AM EDT Office Visit [facility] [address] [place] [address] Katie Pepper MD [address] [place], [place] [phone] 06/19/2024 8:20 AM EDT [facility] [address] [facility] [place] [address] Taylor Merino PA-C [address] [place] [address] [place] [address] 12/22/2024 8:00 AM EDT [facility] [address] [place] [address] Ashley Jackson PA-C [address] [place] [address] Scheduled Procedures Name Priority Associated Diagnoses Date/Ti [...] this encounter Medical Devices Implanted Type Area Food And Nutrition Services Assistant Device Identifier Shelf Expiration Date Model / Serial / Lot Bard Ureteral Stent 6 X 24cm Implanted:Qty: 1 on 02/24/2014 at OR [facility] Left: Ureter 04/26/2018 [id number] / / [id number] documented as of this encounter Advance Directives Latest Code Status on File Code Status Date Activated Date Inactivated Comments Full Code 02/24/2014 12:29 PM 02/24/2014 5:51 PM This o rder reflects the patients wishes and were consensually agreed upon. Care Teams Dairy Feed Mixing Operator Relationship Specialty Start Date End Date Kaylee Kitchen DO [address] [place] [address] PCP - General Family Medicine 10/25/12 documented as of this encounter
--- OUTSIDE RECORDS SUMMARY | 2023-12-19 14:31 | External Medical Summary | Summary of Care ---
Author Name Unknown Organization [facility] Address [address] [place] [facility] [place] [place] [address] Phone [phone] Care Team Providers Care Puff Ironer Name Role Phone Kaylee Kitchen Primary Care Provider [phone] Reason for Visit * Reason Onset Date Comments Follow Up 12/18/2023 Encounter Details Date Type Department Care Team (Late st Contact Info) Description 12/18/2023 Telephone General Surgery, [facility] [address] [place] [address] Bi Jordan MD [address] [place] [address] Follow Up Allergies No known active allergiesdocumented as of [...] kidney stone 02/03/201403/25 Genetic Sleep Disorder Resea [facility] Other*[id number] 10/20/2011 03/29/2016 Iron deficiency anemia 05/11/201102/01 Obesity, [...] Encounter - Danika Ontiveros LPN - 12/18/2023 2:19 PM EDT Called in Phenergan 25mg every six hours prn, as needed for nausea, 16 pills. Called and left message at patients house and said that if this does not work they need to go to the ER documented in this encounter Plan of Treatment Upcoming Encounters Date Type Department Care Team (Late st Contact Info) Description 01/02/2024 9:30 AM EDT Office Visit General Surgery, [facility] [address] [place] [address] Bi Jordan MD [address] [place] [address] 01/04/2024 3:00 PM EDT Office Visit Nephrology, [facility] [address] [place] [address] Smiley Zayas MD [address] [place] [address] 03/10/2024 10:50 AM EDT Office Visit [facility], [place] [address] [place] [address] Kaylee Kitchen, [address] [place] [address] 04/02/2024 7:30 AM EDT Imaging Radiology [facility] 132 [facility] [place] [address] 06/06/2024 7:00 AM EDT Office Visit [facility] Ctr [facility] [address] [facility] [place] [phone] Miriam Yepez CRNP 132 [place] [address] 06/18/2024 8:30 AM EDT Office Visit [facility] [address] [place] [address] Katie Pepper MD [address] [place] [address] 06/19/2024 8:20 AM EDT Office Visit Dermatology, [place] [address] [place] [address] Taylor Merino PA-C [address] [place] [address] [place] [address] 12/22/2024 8:00 AM EDT Office Visit Gynecology/Obstetrics [facility] [address] [facility] [place] [address] Ashley Jackson PA-C [facility] [place] [address] Scheduled Procedures Name Priority Associated Diagnoses Date/Ti me LAPAROSCOPIC CHOLECYSTECTOMY WITH CHOLANGIOGRAM Symptomatic cholelithiasis COLONOSCOPY FLEXIBLE PROXIMA L DIAGNOSTIC Recall History of colon polyps Health Maintenance Due Date Last Done Comments COVID-19 Vaccine (2022- season) 2023 Depression Screening 09/11/2023 09/11/2022 Mammogram 04/02/2024 04/02/2023, 080 08/2021, 03/21/2021, Additional history exists TSH 04/02/2024 04/02/2023, [...] this encounter Medical Devices Implanted Type Area Glaze Handler Device Identifier Shelf Expiration Date Model / Serial / Lot Bard Ureteral Stent 6 X 24cm Implanted:Qty: 1 on 02/24/2014 at OR [facility] Left: Ureter 04/26/2018 [id number] / / [id number] documented as of this encounter Advance Directives Latest Code Status on File Code Status Date Activated Date Inactivated Comments Full Code 02/24/2014 12:29 PM 02/24/2014 5:51 PM This o rder reflects the patients wishes and were consensually agreed upon. Care Teams Puff Ironer Relationship Specialty Start Date End Date Kaylee Kitchen DO [address] [place] [address] PCP - General Family Medicine 10/25/12 documented as of this encounter
[2023-12-19] MEDS: oxyCODONE/ACETAMINOPHEN 5mg/325mg TAB PO PRN (16:07)
--- NOTE | 2023-12-19 17:04 | Communication Note ---
Date of Service: December 19, 2023 Saw patient on evening rounds. Doing well. No further nausea or vomiting. Tolerating clear liquids. No fevers or chills. On exam, the abdomen is soft, mild TTP at the incision; dressing clean, dry, intact Doing well. Will advance diet as tolerated. Will plan for discharge tomorrow.
[2023-12-19] MEDS ORDERED: Nursing to Pharmacy Communication SCH (19:30)
[2023-12-19] MEDS: LATANOPROST 0.005% OP SOLN 2.5 ML BTL OPB SCH (21:02)
[2023-12-20 08:16] LABS: Basophils # (auto) 0.03 K/uL (0.00-0.20); Basophils % (auto) 0.4 %; Eosinophils # (auto) 0.09 K/uL (0.00-0.50); Eosinophils % (auto) 1.1 %; Hematocrit (blood only) 36.9 % (37.0-47.0); Hemoglobin 11.7 g/dl (12.0-16.0); Immature Granulocytes # (auto) 0.03 K/uL (0.01-0.20); Immature Granulocytes % (auto) 0.4 %; Lymphocytes # (auto) 2.25 K/uL (1.20-3.40); Lymphocytes % (auto) 28.6 %; Mean Corpuscular Hemoglobin 30.1 pg (25.0-34.0); Mean Corpuscular Hgb Conc 31.7 g/dL (32.0-36.0); Mean Corpuscular Volume 94.9 fL (80.0-100.0); Mean Platelet Volume 10.4 fL (9.4-12.4); Monocytes % (auto) 10.2 %; Neutrophils # (auto) 4.66 K/uL (1.40-6.50); Neutrophils % (auto) 59.3 %; Platelet Count 164 K/uL (130-400); RDW Coefficient of Variation 13.4 % (11.5-14.5); RDW Standard Deviation 46.3 fL (36.4-46.3); Red Blood Count 3.89 M/uL (4.20-5.40); White Blood Count 7.86 K/ul (4.8-10.8)
--- NOTE | 2023-12-20 10:52 | Surgery Progress Note ---
Date of Service December 20, 2023 Assessment & Plan (1) Incisional hernia: Plan: pod 1. Status post repair of incisional hernia Doing very well. Tolerating diet. Advance as tolerated. Encourage out of bed and ambulation. We will discharge to home later today. We will follow up in clinic in 1-2 weeks. Admission and Anticipated Discharge Date Admission Date: December 18, 2023 Subjective doing well this morning. Minimal pain. No nausea or vomiting. No fevers overnight. Tolerating full liquid diet. Physical Exam Physical Exam: NAD, a and O x3 AF VSS Abdomen: Soft, mild TTP Incision C/ D/ I; Steri-Strips in place Results & Data Vital Signs (Past 12 Hours) Vital Signs Temp Pulse Resp BP Pulse Ox O2 Del Method 12/20/23 09:00 36.5 C 55 L 18 148/79 H 95 Room Air 12/20/23 03:04 36.7 C 56 L 14 114/71 95 Room Air 12/19/23 23:12 36.6 C 62 16 120/73 94 Room Air (1) Incisional hernia Obstruction and gangrene presence: with obstruction but without gangrene Qualified Code(s): K43.0 - Incisional hernia with obstruction, without gangrene
== END 2023-12-20 14:05 | disposition home or self-care (01) | DRG 354 ==
LOC: ED 18:45 → 3N 23:27